=== PATIENT | female | born 1945 | race Hispanic/Latino ===

== ENCOUNTER 2017-05-07 14:57 | Emergency (ER) | payer MEDICARE, BC ==
[2017-05-07] MEDS ORDERED: cloNIDine 0.1 MG TAB ONE ×2 (16:30→17:41)
--- NOTE | 2017-05-07 16:56 | RAD ---
AP VIEW CHEST: Date: 05/07/17 INDICATION: Vomiting, headache, and hypertension. COMPARISON: Single view of chest dated 12/25/16. FINDINGS: There is mild cardiomegaly and pulmonary vascular congestion. No pleural effusion, air space consolid ation, or pneumothorax evident. Chronic osseous changes are similar. IMPRESSION: Mild cardiomegaly with mild pulmonary vascular congestion. POS: [facility]
[2017-05-07 17:03] LABS: #Eosinphils 0.1 thou/uL (0.0-0.7); #Lymphocytes 1.9 thou/uL (1.20-3.40); %Basophils 0.5 % (0.0-1.0); %Eosinophils 1.6 % (0.0-10.0); %Lymphocytes 23.1 % (21.0-51.0); %Monocytes 12.8 % (0.0-10.0); Hematocrit 45.4 % (36.0-47.0); Mean Platelet Volume 9.7 fL (7.4-10.4); Red Blood Cell (RBC) Count 5.09 mill/uL (4.20-5.40); White Blood Cell (WBC) Count 8.1 thou/uL (4.8-10.8)
[2017-05-07 17:05] LABS: ALT (SGPT) 15 U/L (8-55); AST (SGOT) 20 U/L (5-34); Alkaline Phosphatase 119 U/L (40-150); Anion Gap 12 mmol/L (10-20); BUN (Urea Nitrogen) 17 mg/dL (9.8-20.1); Bilirubin, Total 0.5 mg/dL (0.2-1.2); CK (CPK) 45 U/L (29-168); Calc. Creatinine Clearance 0 mL/min (70-130); Calcium 8.8 mg/dL (7.8-10.44); Carbon Dioxide 24 mmol/L (23-31); Chloride 107 mmol/L (98-107); Estimated GFR-MDRD 83; Globulin 3.7 g/dL (2.4-3.5); Protein, Total 7.2 g/dL (6.0-8.3)
[2017-05-07 17:08] LABS: Troponin I Less than 0.010 ng/mL (< 0.028)
[2017-05-07] MEDS ORDERED: Furosemide 40 MG/4 ML VIAL ONE (17:41)
== END 2017-05-07 20:05 | disposition home or self-care (01) ==
LOC: ERS 14:57
DX: I11.0 Hypertensive heart disease with heart failure (principal); I50.9 Heart failure, unspecified; K21.9 Gastro-esophageal reflux disease without esophagitis; F41.9 Anxiety disorder, unspecified; Z77.22 Contact with and (suspected) exposure to environmental tobacco smoke (acute) (chronic); Z79.82 Long term (current) use of aspirin
CPT/HCPCS: 36415; 71010; 80053; 82550; 82553; 83880; 84484; 85025; 93005; 96374; J1940

== ENCOUNTER 2017-07-10 11:07 | Inpatient (IN) | payer MEDICARE, BC ==
[2017-07-10 12:07] LABS: #Basophils 0.1 thou/uL (0.0-0.2); #Eosinphils 0.3 thou/uL (0.0-0.7); #Lymphocytes 1.8 thou/uL (1.20-3.40); #Neutrophils 14.9 thou/uL (1.40-6.50); %Basophils 0.4 % (0.0-1.0); %Eosinophils 1.6 % (0.0-10.0); %Lymphocytes 9.8 % (21.0-51.0); %Monocytes 5.5 % (0.0-10.0); %Neutrophils 82.8 % (42.0-75.0); Mean Corpuscular HGB CONC 31.2 g/dL (32.0-36.0); Mean Corpuscular Hemoglobin 27.8 pg (27.0-31.0); Mean Corpuscular Volume 88.9 fl (81.0-99.0); Mean Platelet Volume 10.6 fL (7.4-10.4); Platelet Count 185 thou/uL (130-400); Red Blood Cell (RBC) Count 5.03 mill/uL (4.20-5.40)
[2017-07-10] MEDS ORDERED: Acetaminophen 500 MG TAB ONE (12:08)
[2017-07-10 12:22] LABS: ALT (SGPT) 11 U/L (8-55); AST (SGOT) 16 U/L (5-34); Albumin 4.1 g/dL (3.4-4.8); Alkaline Phosphatase 118 U/L (40-150); Anion Gap 13 mmol/L (10-20); BUN (Urea Nitrogen) 18 mg/dL (9.8-20.1); Bilirubin, Total 0.9 mg/dL (0.2-1.2); Calc. Creatinine Clearance 0 mL/min (70-130); Calcium 9.5 mg/dL (7.8-10.44); Carbon Dioxide 27 mmol/L (23-31); Chloride 102 mmol/L (98-107); Estimated GFR-MDRD 71; Globulin 4.3 g/dL (2.4-3.5); Glucose 112 mg/dL (83-110); Potassium 4.2 mmol/L (3.5-5.1); Protein, Total 8.4 g/dL (6.0-8.3); Sodium 138 mmol/L (136-145)
--- NOTE | 2017-07-10 12:29 | RAD ---
2 VIEW CHEST: Date: 07/10/17 HISTORY: Cough. COMPARISON: 05/07/17. FINDINGS: There appears to be increased density seen posteriorly in the lateral view which may represent left b asilar infiltrate. There is vascular congestion with some interstitial prominence which suggests mild interstitial edema. The interstitial congestion appears stable from 05/07/17. IMPRESSION: Mild cardiomegaly and mild vascular congestion which is again noted. I cannot exclude left basilar in filtrate which may represent superimposed inflammatory process. POS: [facility]
[2017-07-10 12:53] LABS: Bilirubin Negative (Negative); Blood, Urine Negative (Negative); Clarity CLEAR (Clear); Glucose, Urine (Dipstick) Negative (Negative); Leukocyte Trace (Negative); Nitrite Negative (Negative); Protein, Urine (Dipstick) Negative (Neg-Trace); Specific Gravity, Urine 1.011 (1.002-1.036); Urobilinogen 0.2 mg/dL (0.2-1.0)
[2017-07-10 12:55] LABS: Hyaline Casts/LPF 0-3 HYALINE CAST LPF (0-3 Hyaline); Pathc Cast-AUWi Flag 0.13 (0-2.49)
[2017-07-10 13:05] LABS: RBC/HPF 0-3 HPF (0-3)
[2017-07-10 13:09] LABS: Bacteria/HPF Rare-Few HPF (None Seen)
[2017-07-10] MEDS ORDERED: Levofloxacin 500 mg/D5W 100 ml Premix Bag ONE (13:19)
--- NOTE | 2017-07-10 15:10 | HP ---
DATE OF ADMISSION: 07/20/2017 CHIEF COMPLAINT: Shortness of breath. HISTORY OF PRESENT ILLNESS: This is a 71-year-old female. She presented to the hospital wi th persistent shortness of breath that started 1 week ago associated with coughing productive sputum, green colored. She had a fever of 101 at home and she did mention that she had exposure to sick peo ple around. She had a flu shot this season and she was tested negative for influenza A and B. The p atient complains of chest pain on the left precordium, which is more pleuritic in nature. No relievi ng factors, no exacerbating factors except for deep breathing. It is not associated with nausea or v omiting, no diarrhea, no constipation. The patient had a chest x-ray in the ER, which showed signs s uggestive of left basilar infiltrate with elevated white count. The patient is not acutely hypoxic, but she does use oxygen at home in night. PAST MEDICAL HISTORY: 1. Hypertension. 2. Congestive heart failure. 3. Gastroesophageal reflux disease. 4. Restless legs syndrome. PAST SURGICAL HISTORY: 1. Left arm surgery. 2. Cholecystectomy. PSYCHIATRIC HISTORY: The patient has history of anxiety disorder. SOCIAL HISTORY: The patient denies any smoking or any alcohol use, but she has who smokes an d states she is exposed to passive smoking. FAMILY HISTORY: History of congestive heart failure, hypertension, and diabetes, also runs in the [facility]. No history of any cancer. ALLERGIES: The patient is allergic to PENICILLIN and AMOXICILLIN. HOME MEDICATIONS: Aspirin 81 mg daily, Coreg 3.125 mg p.o. b.i.d., ferrous sulfate 325 mg p.o. daily , Lasix 40 mg daily, hydralazine 25 mg p.o. t.i.d., lisinopril 5 mg p.o. daily, pantoprazole 40 mg p. o. daily, potassium 20 mEq p.o. daily, pramipexole 3 mg p.o. in the morning and pramipexole 3 mg p.o. at bedtime, sertraline 100 mg p.o. daily, torsemide 20 mg p.o. daily. REVIEW OF SYSTEMS: All 12 systems are reviewed with the patient thoroughly and found to be negative at this time. Systems reviewed HEENT, CVS, DETECTIVE NARCOTICS AND VICE, respiratory, GI, , musculoskeletal, skin, endocrin e, psychiatric and all systems are reviewed with the patient thoroughly and found to be negative exce pt the ones listed in the HPI. The following complete review of systems was negative, unless otherwi se mentioned in the HPI or below: Constitutional: Weight loss or gain, sense of well-being, ability to conduct usual activities, exerc ise tolerance. Skin/Breast: Rash, itching, changes in hair growth or loss, nail changes, breast lumps, tenderness, swelling, nipple discharge. Eyes: Vision, double vision, tearing, blind spots, pain. ENT/Mouth: Headaches (location, time of onset, duration, precipitating factors), vertigo, lightheade dness, injury. Vision, double vision, tearing, blind spots, pain, nose bleeding, colds, obstruction, discharge, dental difficulties, gingival bleeding, dentures, neck stiffness, pain, tenderness, masses in thyroid or other areas Cardiovascular: Precordial pain, substernal distress, palpitations, syncope, dyspnea on exertion, or thopnea, nocturnal paroxysmal dyspnea, edema, cyanosis, hypertension, heart murmurs, varicosities, ph lebitis, claudication. Respiratory: Pain, shortness of breath, wheezing, stridor, cough, hemoptysis, fever or night sweats Gastrointestinal: Poor appetite, dysphagia, indigestion, abdominal pain, heartburn, eructation, naus ea, vomiting, hematemesis, jaundice, constipation, or diarrhea, abnormal stools (paola-colored, tarry, bloody, greasy, foul smelling), flatulence, hemorrhoids, recent changes in bowel habits. Genitourinary: Urgency, frequency, dysuria, nocturia, hematuria, polyuria, oliguria, unusual (or nevaeh nge in) color of urine, stones, hesitancy, change in size of stream, dribbling, acute retention or in continence, libido, potency. Musculoskeletal: Pain, swelling, redness or heat of muscles or joints, limitation, of motion, muscul ar weakness, atrophy, cramps. Neurologic/Psychiatric: Convulsions, paralyses, tremor, incoordination, paraesthesias, difficulties with memory of speech, sensory or motor disturbances, or muscular coordination (ataxia, tremor), emot ional problems, anxiety, depression, previous psychiatric care, unusual perceptions, hallucinations. Allergy/Immunologic: Skin rash, anemia, bleeding tendency, polydipsia, polyuria, intolerance to heat or cold. PHYSICAL EXAMINATION: VITAL SIGNS: Blood pressure 130/88, heart rate is 18, saturation is 98% on 3 liters. GENERAL: The patient is moderately built and morbidly obese. She is alert and oriented. HEENT: Atraumatic, normocephalic. PERRLA. Extraocular movements were intact. Oral mucosa is pink and moist. CARDIOVASCULAR: S1, S2 normal. No murmurs, rubs or gallops. LUNGS: Bilateral air entry was equal. Crackles were noted in the left lower base along with inspira tory crackles. Otherwise, no diffuse wheezing was noted. ABDOMEN: Distended, nontender, no guarding, no rebound tenderness. Bowel sounds normal. MUSCULOSKELETAL: The patient has bilateral pedal edema 1+ up to the knees. Otherwise, no calf tende rness. No joint tenderness, no joint swelling. SKIN: No cyanosis, no erythema, no rash, no pallor. CENTRAL NERVOUS SYSTEM: Cranial examination II-XII intact. No focal deficit noted. PSYCHIATRIC: No signs of suicidal ideation. No signs of massimo noted. LYMPHATICS: No evidence of any generalized lymph nodes was noted. LABORATORY DATA: WBC 18.0, hemoglobin is 14.0, hematocrit is 44.8, platelets 185. Sodium 130, potas sium 4.2, chloride is 102, bicarbonate is 127, BUN is 18, creatinine 0.79. ASSESSMENT AND PLAN: 1. Acute left lower lobe pneumonia. 2. Sepsis. 3. History of congestive heart failure, likely diastolic dysfunction with no exacerbation at this ti me. 4. Hypertension well controlled. 5. Hyperlipidemia. 6. History of restless legs syndrome. PLAN: 1. Plan is to start the patient on IV antibiotics with levofloxacin 750 mg IV daily and as patient i s allergic to PENICILLIN, we will not add any cephalosporins at this time as the patient looks clinic ally stable. We will add vancomycin if the patient develop persistent fevers and worsening white cou nt. We will wait for the sputum cultures and blood cultures. We will start the patient on DuoNebs e very 4 hours and albuterol nebs every 2 hours as needed. 2. We will start the patient on Mucinex 1200 mg b.i.d. for expectoration. 3. Patient has history of congestive heart failure. No evidence of an exacerbation was noted. We w ill not start her on IV fluids and encourage the patient to take oral hydration. We will continue th e patient on home medications with lisinopril and we will hold off the Lasix at this time because of the sepsis. 4. The patient has evidence of sepsis with elevated white count of 18,000 and signs of infection wit h left lower lobe infiltrate. We will closely monitor to prevent the patient from going into septic shock. 5. The patient has history of restless legs syndrome. We will continue the patient on pramipexole; she takes 0.3 mg p.o. b.i.d. 6. Hypertension is well controlled. We will continue and restart the home medications to keep the b lood pressures at goal between less than 130/80. 7. Deep venous thrombosis prophylaxis, Lovenox 40 mg subcutaneous daily. I spent 70 minutes on this patient.
[2017-07-10] MEDS ORDERED: Ondansetron HCl/PF 4 MG/2 ML Vial IVP PRN (16:16)
[2017-07-10] MEDS ORDERED: Guaifenesin DM 100-10/5 ML UDCUP PO PRN ×2 (16:16→16:29)
[2017-07-10] MEDS ORDERED: Albuterol Sulfate 2.5 mg/3 ml Neb NEB PRN (16:16)
[2017-07-10] MEDS ORDERED: Acetaminophen 325 MG TAB PO PRN (16:16)
[2017-07-10 16:24] VITALS: BMI 43.1
[2017-07-10] MEDS ORDERED: Prevnar 13-Val Conj/PF 0.5 ML SYRINGE IM ONE (17:00)
[2017-07-10] MEDS: Famotidine/PF 20 mg/2ml Vial SLOW IVP SCH (22:00)
[2017-07-10] MEDS: guaiFENesin ER 600 MG TAB PO SCH (22:01)
[2017-07-11 04:49] LABS: #Eosinphils 0.4 thou/uL (0.0-0.7); #Monocytes 0.9 thou/uL (0.11-0.59); #Neutrophils 9.9 thou/uL (1.40-6.50); %Basophils 0.3 % (0.0-1.0); %Eosinophils 3.3 % (0.0-10.0); %Lymphocytes 15.2 % (21.0-51.0); %Monocytes 6.5 % (0.0-10.0); %Neutrophils 74.8 % (42.0-75.0); Hemoglobin 12.5 g/dL (12.0-16.0); Mean Corpuscular HGB CONC 32.2 g/dL (32.0-36.0); Mean Corpuscular Hemoglobin 28.6 pg (27.0-31.0); Mean Corpuscular Volume 88.9 fl (81.0-99.0); Mean Platelet Volume 10.5 fL (7.4-10.4); Platelet Count 151 thou/uL (130-400); RBC Distribution Width 13.9 % (11.5-14.5); Red Blood Cell (RBC) Count 4.37 mill/uL (4.20-5.40); White Blood Cell (WBC) Count 13.2 thou/uL (4.8-10.8)
[2017-07-11 04:51] LABS: Anion Gap 9 mmol/L (10-20); BUN (Urea Nitrogen) 17 mg/dL (9.8-20.1); Calc. Creatinine Clearance 121 mL/min (70-130); Carbon Dioxide 28 mmol/L (23-31); Chloride 103 mmol/L (98-107); Estimated GFR-MDRD 82; Glucose 102 mg/dL (83-110); Potassium 3.7 mmol/L (3.5-5.1); Sodium 136 mmol/L (136-145)
[2017-07-11] MEDS: Enoxaparin Sodium 40 MG/0.4 ML SYRINGE SC SCH (08:25)
[2017-07-11] MEDS: guaiFENesin ER 600 MG TAB PO SCH ×2 (08:25→20:32)
[2017-07-11] MEDS: Famotidine/PF 20 mg/2ml Vial SLOW IVP SCH ×2 (08:25→20:33)
[2017-07-11] MEDS: HYDROcodone/Acetaminophen 5/325 mg Tablet PO PRN (12:33)
--- NOTE | 2017-07-11 14:25 | PDOC.PN ---
- Subjective Encounter Start Date: 07/11/17 Encounter Start Time: 11:00 Patient is seen today, alert and oriented. She feels much better, continuos to cough on oxygen. - Objective Resuscitation Status: Resuscitation Status FULL:Full Resuscitation MAR Reviewed: Yes Vital Signs & Weight: Vital Signs (12 hours) Temp Pulse Resp BP Pulse Ox 07/11/17 11:40 98.2 F 67 20 137/66 94 L 07/11/17 10:39 64 16 94 L 07/11/17 07:35 98.2 F 64 18 143/67 H 93 L 07/11/17 07:30 98.2 F 64 18 93 L 07/11/17 07:06 61 16 96 07/11/17 05:18 97.5 F L 63 15 103/66 98 07/11/17 02:32 63 16 98 Weight Weight 236 lb I&O: 07/10/17 07/11/17 07/12/17 06:59 06:59 06:59 Intake Total 240 Balance 240 Result Diagrams: 07/11/17 04:20 07/11/17 04:20 Radiology Reviewed by me: Yes (Left Lobar infiltrate) Phys Exam - Physical Examination HEENT: PERRLA, moist MMs Neck: no nodes, no JVD Respiratory: no rales, wheezing present Cardiovascular: RRR, no significant murmur Gastrointestinal: soft, non-tender Musculoskeletal: no edema, pulses present Neurological: non-focal, normal sensation Psychiatric: normal affect, A&O x 3 Dx/Plan (1) Sepsis Code(s): A41.9 - SEPSIS, UNSPECIFIED ORGANISM Status: Acute Comment: Patient has Sepsis from pneumonia, but is Responding to IV antibitoics Levofloxacin, will clsoley monitor. (2) Left lower lobe pneumonia Code(s): J18.1 - LOBAR PNEUMONIA, UNSPECIFIED ORGANISM Status: Acute Comment : Continue on IV levaquine, Will continue with Nebs. Continue on nasal canula. (3) CHF (congestive heart failure) Code(s): I50.9 - HEART FAILURE, UNSPECIFIED Status: Acute Qualifiers: Congestive heart failure type: diastolic Congestive heart failure chronicity: chronic Qualified Code(s): I50.32 - Chronic diastolic (congestive ) heart failure Comment: Continue to Monitor, no exacerbation noted, restart on AceI, BB, Demedex, will continue to Montior (4) Hypertension Code(s): I10 - ESSENTIAL (PRIMARY) HYPERTENSION Status: Acute Qualifiers: Hypertension type: essential hypertension Qualified Code(s): I10 - Essential (primary) hypertension Comment: 1. adjustment of home medication due to hypotension 2. follow up and monitor and adjustment of medication (5) Morbid obesity Code(s): E66.01 - MORBID (SEVERE) OBESITY DUE TO EXCESS CALORIES Status: Chronic (6) Restless legs syndrome Status: Chronic Comment: Restart pramipexole she take Twice daily. - Plan cont current plan of care, continue antibiotics, PT/OT, certified social workers in health care, respiratory therapy, incentive spirometry, out of bed/ambulate, DVT proph w/ lovenox * . - Discharge Day Encounter end time: 11:35 Review of Systems - Review of Systems Constitutional: weakness, malaise Eyes: negative: Pain, Vision Change, Conjunctivae Inflammation, Eyelid Inflammation, Redness, Other ENT: negative: Ear Pain, Ear Discharge, Nose Pain, Nose Discharge, Nose Congestion, Mouth Pain, Mouth Swelling, Throat Pain, Throat Swelling, Other Respiratory: Cough, Shortness of Breath, SOB with Excertion, Wheezing Cardiovascular: negative: chest pain, palpitations, orthopnea, paroxysmal nocturnal dyspnea, edema, light headedness, other Gastrointestinal: negative: Nausea, Vomiting, Abdominal Pain, Diarrhea, Constipation, Melena, Hematochezia, Other Genitourinary: negative: Dysuria, Frequency, Incontinence, Hematuria, Retention , Other Musculoskeletal: negative: Neck Pain, Shoulder Pain, Arm Pain, Back Pain, Hand Pain, Leg Pain, Foot Pain, Other Skin: negative: Rash, Lesions, Fritz, Bruising, Other - Medications/Allergies Allergies/Adverse Reactions: Allergies Allergy/AdvReac Type Severity Reaction Status Date / Time amoxicillin [Amoxicillin] Allergy Verified 10/20/16 11:16 Penicillins Allergy Verified 10/20/16 11:16 tuberculin, purified protein Allergy Verified 10/20/16 11:16 deriva [Tuberculin,Purif.Prot.Deriv.] Medications: Current Medications Acetaminophen (Tylenol) 650 mg PO Q4H PRN PRN Reason: Headache/Fever or Pain Hydrocodone Bitart/Acetaminophen ([place] 5/325) 1 tab PO Q4H PRN PRN Reason: Moderate Pain (4-6) Last Admin: 07/11/17 12:33 Dose: 1 tab Albuterol Sulfate (Ventolin) 2.5 mg NEB Q2H PRN PRN Reason: Wheezing Albuterol/Ipratropium (Duoneb) 3 ml NEB [id number] [facility] Last Admin: 07/11/17 10:39 Dose: 3 ml Aspirin (Ecotrin) 81 mg PO DAILY [facility] Carvedilol (Coreg) 3.125 mg PO BID [facility] Dextromethorphan Polistirix (Delsym 30 Mg/5 Ml 89 Ml Bot) 30 mg PO Q4H PRN PRN Reason: Cough Enoxaparin Sodium (Lovenox) 40 mg SC 0900 [facility] Last Admin: 07/11/17 08:25 Dose: 40 mg Famotidine (Pepcid) 20 mg SLOW IVP Q12HR [facility] Last Admin: 07/11/17 08:25 Dose: 20 mg Guaifenesin (Mucinex) 1,200 mg PO Q12HR [facility] Last Admin: 07/11/17 08:25 Dose: 1,200 mg Hydralazine HCl (Apresoline) 25 mg PO TID [facility] Levofloxacin 750 mg/ Device 150 mls @ 100 mls/hr IVPB 1300 [facility] Last Admin: 07/11/17 12:31 Dose: 150 mls Lisinopril (Zestril) 5 mg PO DAILY [facility] Non-Formulary Medication (Pramipexole Di-Hcl [Mirapex Er]) 3 mg PO HS [facility] Ondansetron HCl (Zofran) 4 mg IVP Q6H PRN PRN Reason: Nausea/Vomiting Potassium Chloride (K-Dur) 20 meq PO DAILY [facility] Pramipexole Dihydrochloride (Mirapex) 3 mg PO HS [facility] Pramipexole Dihydrochloride (Mirapex) 3 mg PO QAM [facility] Sertraline HCl (Zoloft) 100 mg PO DAILY [facility] Sodium Chloride (Flush - Normal Saline) 10 ml IVF Q12HR [facility] Last Admin: 07/11/17 08:26 Dose: 10 ml Sodium Chloride (Flush - Normal Saline) 10 ml IVF PRN PRN PRN Reason: Saline Flush Torsemide (Demadex) 20 mg PO DAILY [facility]
[2017-07-11] MEDS: hydrALAZINE 25 MG TAB PO SCH ×2 (15:04→20:31)
[2017-07-11] MEDS: Pramipexole Di-HCl 1 MG TAB PO SCH (20:32)
[2017-07-11] MEDS: Carvedilol 3.125 MG TAB PO SCH (20:32)
[2017-07-11] MEDS ORDERED: Pramipexole Di-HCl 1 MG TAB PO SCH (21:00)
[2017-07-12] MEDS: HYDROcodone/Acetaminophen 5/325 mg Tablet PO PRN ×2 (00:16→22:14)
[2017-07-12] MEDS: Dextromethorphan Polistirex 30 MG/5 ML (89 ML BOTTLE) PO PRN ×3 (00:17→22:14)
[2017-07-12 04:50] LABS: #Basophils 0.1 thou/uL (0.0-0.2); #Eosinphils 0.5 thou/uL (0.0-0.7); #Lymphocytes 2.2 thou/uL (1.20-3.40); #Monocytes 0.9 thou/uL (0.11-0.59); %Basophils 0.5 % (0.0-1.0); %Lymphocytes 20.9 % (21.0-51.0); %Monocytes 8.3 % (0.0-10.0); %Neutrophils 65.3 % (42.0-75.0); Hemoglobin 11.3 g/dL (12.0-16.0); Mean Corpuscular Hemoglobin 28.3 pg (27.0-31.0); Mean Corpuscular Volume 88.5 fl (81.0-99.0); Mean Platelet Volume 10.5 fL (7.4-10.4); Platelet Count 154 thou/uL (130-400); RBC Distribution Width 13.7 % (11.5-14.5); Red Blood Cell (RBC) Count 4.01 mill/uL (4.20-5.40); White Blood Cell (WBC) Count 10.7 thou/uL (4.8-10.8)
[2017-07-12 05:09] LABS: Anion Gap 10 mmol/L (10-20); BUN (Urea Nitrogen) 20 mg/dL (9.8-20.1); Calc. Creatinine Clearance 114 mL/min (70-130); Carbon Dioxide 28 mmol/L (23-31); Chloride 106 mmol/L (98-107); Estimated GFR-MDRD 77; Glucose 101 mg/dL (83-110); Potassium 3.7 mmol/L (3.5-5.1); Sodium 140 mmol/L (136-145)
[2017-07-12] MEDS: Potassium Chloride 20 MEQ TAB PO SCH (08:42)
[2017-07-12] MEDS ORDERED: Lisinopril 5 MG TAB PO SCH (09:00)
[2017-07-12] MEDS ORDERED: Pramipexole Di-HCl 1 MG TAB PO SCH (09:00)
[2017-07-12] MEDS: Enoxaparin Sodium 40 MG/0.4 ML SYRINGE SC SCH (09:06)
[2017-07-12] MEDS: Aspirin 81 mg Enteric Coated Tablet PO SCH (09:07)
[2017-07-12] MEDS: guaiFENesin ER 600 MG TAB PO SCH ×2 (09:07→22:13)
[2017-07-12] MEDS: Carvedilol 3.125 MG TAB PO SCH ×2 (09:07→22:12)
[2017-07-12] MEDS: Famotidine/PF 20 mg/2ml Vial SLOW IVP SCH (09:07)
[2017-07-12] MEDS: hydrALAZINE 25 MG TAB PO SCH ×3 (09:08→22:12)
[2017-07-12] MEDS: Pramipexole Di-HCl 1 MG TAB PO SCH ×2 (09:09→22:13)
[2017-07-12] MEDS: Torsemide 20 MG TAB PO SCH (09:45)
--- NOTE | 2017-07-12 14:54 | PDOC.PN ---
- Subjective Encounter Start Date: 07/12/17 Encounter Start Time: 12:00 Patient is seen today, alert and oriented. She has markedly eelvated Blood pressures today, she is feeling good from pulmonary standpoint. - Objective Resuscitation Status: Resuscitation Status FULL:Full Resuscitation MAR Reviewed: Yes Vital Signs & Weight: Vital Signs (12 hours) Temp Pulse Resp BP BP Pulse Ox 07/12/17 13:34 67 16 96 07/12/17 12:17 98.6 F 62 18 181/87 H 96 07/12/17 10:21 81 16 94 L 07/12/17 09:08 62 175/80 H 07/12/17 08:56 97.7 F 64 16 175/80 H 94 L 07/12/17 07:30 97.7 F 64 16 94 L 07/12/17 06:49 66 16 97 07/12/17 04:00 97.7 F 65 16 148/78 H 92 L Weight Weight 236 lb I&O: 07/11/17 07/12/17 07/13/17 06:59 06:59 06:59 Intake Total 240 550 Balance 240 550 Result Diagrams: 07/12/17 04:08 07/12/17 04:08 Radiology Reviewed by me: Yes EKG Reviewed by me: Yes Phys Exam - Physical Examination HEENT: PERRLA, moist MMs Neck: no nodes, no JVD Respiratory: no wheezing, no rales Cardiovascular: RRR, no significant murmur Gastrointestinal: soft, non-tender Musculoskeletal: no edema, pulses present Neurological: non-focal, normal sensation Psychiatric: normal affect, A&O x 3 Dx/Plan (1) Sepsis Code(s): A41.9 - SEPSIS, UNSPECIFIED ORGANISM Status: Acute Comment: Patient has Sepsis from pneumonia, but is Responding to IV antibitoics Levofloxacin, will clsoley monitor.repeat chest xray for tomorrow. (2) Left lower lobe pneumonia Code(s): J18.1 - LOBAR PNEUMONIA, UNSPECIFIED ORGANISM Status: Acute Comment : Continue on IV levaquine, Will continue with Nebs. Continue on nasal canula. (3) CHF (congestive heart failure) Code(s): I50.9 - HEART FAILURE, UNSPECIFIED Status: Acute Qualifiers: Congestive heart failure type: diastolic Congestive heart failure chronicity: chronic Qualified Code(s): I50.32 - Chronic diastolic (congestive ) heart failure Comment: Continue to Monitor, no exacerbation noted, restart on AceI, BB, Demedex, will continue to Montior (4) Hypertension Code(s): I10 - ESSENTIAL (PRIMARY) HYPERTENSION Status: Acute Qualifiers: Hypertension type: essential hypertension Qualified Code(s): I10 - Essential (primary) hypertension Comment: 1. poorly controlled, adjustment of home medication due to hypotension , will increase lisinopril to 20mg po daily and PRN hydralazine for ssyloic >160 2. follow up and monitor and adjustment of medication (5) Morbid obesity Code(s): E66.01 - MORBID (SEVERE) OBESITY DUE TO EXCESS CALORIES Status: Chronic (6) Restless legs syndrome Status: Chronic Comment: Restart pramipexole she take Twice daily. - Plan cont current plan of care, plan discussed w/ family, continue antibiotics, PT/OT , respiratory therapy, incentive spirometry, DVT proph w/lovenox * . - Discharge Day Encounter end time: 12:35 Review of Systems - Review of Systems Eyes: negative: Pain, Vision Change, Conjunctivae Inflammation, Eyelid Inflammation, Redness, Other ENT: negative: Ear Pain, Ear Discharge, Nose Pain, Nose Discharge, Nose Congestion, Mouth Pain, Mouth Swelling, Throat Pain, Throat Swelling, Other Respiratory: negative: Cough, Dry, Shortness of Breath, Hemoptysis, SOB with Excertion, Pleuritic Pain, Sputum, Wheezing Cardiovascular: negative: chest pain, palpitations, orthopnea, paroxysmal nocturnal dyspnea, edema, light headedness, other Musculoskeletal: negative: Neck Pain, Shoulder Pain, Arm Pain, Back Pain, Hand Pain, Leg Pain, Foot Pain, Other - Medications/Allergies Allergies/Adverse Reactions: Allergies Allergy/AdvReac Type Severity Reaction Status Date / Time amoxicillin [Amoxicillin] Allergy Verified 10/20/16 11:16 Penicillins Allergy Verified 10/20/16 11:16 tuberculin, purified protein Allergy Verified 10/20/16 11:16 deriva [Tuberculin,Purif.Prot.Deriv.] Medications: Current Medications Acetaminophen (Tylenol) 650 mg PO Q4H PRN PRN Reason: Headache/Fever or Pain Hydrocodone Bitart/Acetaminophen ([place] 5/325) 1 tab PO Q4H PRN PRN Reason: Moderate Pain (4-6) Last Admin: 07/12/17 00:16 Dose: 1 tab Albuterol Sulfate (Ventolin) 2.5 mg NEB Q2H PRN PRN Reason: Wheezing Albuterol/Ipratropium (Duoneb) 3 ml NEB [id number] [facility] Last Admin: 07/12/17 13:34 Dose: 3 ml Aspirin (Ecotrin) 81 mg PO DAILY [facility] Last Admin: 07/12/17 09:07 Dose: 81 mg Carvedilol (Coreg) 3.125 mg PO BID [facility] Last Admin: 07/12/17 09:07 Dose: 3.125 mg Dextromethorphan Polistirix (Delsym 30 Mg/5 Ml 89 Ml Bot) 30 mg PO Q4H PRN PRN Reason: Cough Last Admin: 07/12/17 00:17 Dose: 30 mg Enoxaparin Sodium (Lovenox) 40 mg SC 0900 [facility] Last Admin: 07/12/17 09:06 Dose: 40 mg Famotidine (Pepcid) 20 mg PO BID [facility] Guaifenesin (Mucinex) 1,200 mg PO Q12HR [facility] Last Admin: 07/12/17 09:07 Dose: 1,200 mg Hydralazine HCl (Apresoline) 25 mg PO TID [facility] Last Admin: 07/12/17 09:08 Dose: 25 mg Hydralazine HCl (Apresoline) 10 mg SLOW IVP Q4H PRN PRN Reason: systolic >160 Levofloxacin 750 mg/ Device 150 mls @ 100 mls/hr IVPB 1300 [facility] Last Admin: 07/12/17 13:00 Dose: 150 mls Lisinopril (Zestril) 20 mg PO DAILY [facility] Ondansetron HCl (Zofran) 4 mg IVP Q6H PRN PRN Reason: Nausea/Vomiting Potassium Chloride (K-Dur) 20 meq PO QAM-WM [facility] Last Admin: 07/12/17 08:42 Dose: 20 meq Pramipexole Dihydrochloride (Mirapex) 3 mg PO BID [facility] Last Admin: 07/12/17 09:09 Dose: 3 mg Sertraline HCl (Zoloft) 100 mg PO DAILY [facility] Last Admin: 07/12/17 09:09 Dose: 100 mg Sodium Chloride (Flush - Normal Saline) 10 ml IVF Q12HR [facility] Last Admin: 07/12/17 09:10 Dose: 10 ml Sodium Chloride (Flush - Normal Saline) 10 ml IVF PRN PRN PRN Reason: Saline Flush Torsemide (Demadex) 20 mg PO DAILY [facility] Last Admin: 07/12/17 09:45 Dose: 20 mg
[2017-07-12] MEDS: hydrALAZINE 20 MG/ML VIAL SLOW IVP PRN (17:43)
[2017-07-12] MEDS: Famotidine 20 MG TAB PO SCH (22:12)
[2017-07-13 04:39] LABS: #Eosinphils 0.6 thou/uL (0.0-0.7); #Lymphocytes 2.3 thou/uL (1.20-3.40); #Monocytes 0.7 thou/uL (0.11-0.59); #Neutrophils 5.9 thou/uL (1.40-6.50); %Basophils 0.4 % (0.0-1.0); %Eosinophils 6.1 % (0.0-10.0); %Monocytes 7.5 % (0.0-10.0); Hemoglobin 11.6 g/dL (12.0-16.0); Mean Corpuscular Hemoglobin 28.2 pg (27.0-31.0); Mean Corpuscular Volume 88.2 fl (81.0-99.0); Mean Platelet Volume 10.6 fL (7.4-10.4); Platelet Count 167 thou/uL (130-400); RBC Distribution Width 13.7 % (11.5-14.5); Red Blood Cell (RBC) Count 4.11 mill/uL (4.20-5.40); White Blood Cell (WBC) Count 9.5 thou/uL (4.8-10.8)
[2017-07-13 05:05] LABS: Anion Gap 7 mmol/L (10-20); BUN (Urea Nitrogen) 20 mg/dL (9.8-20.1); Calc. Creatinine Clearance 110 mL/min (70-130); Calcium 8.9 mg/dL (7.8-10.44); Carbon Dioxide 32 mmol/L (23-31); Chloride 104 mmol/L (98-107); Estimated GFR-MDRD 73; Glucose 88 mg/dL (83-110); Potassium 3.6 mmol/L (3.5-5.1); Sodium 139 mmol/L (136-145)
[2017-07-13] MEDS: hydrALAZINE 25 MG TAB PO SCH ×3 (08:58→21:33)
[2017-07-13] MEDS: Potassium Chloride 20 MEQ TAB PO SCH (08:58)
[2017-07-13] MEDS: Pramipexole Di-HCl 1 MG TAB PO SCH ×2 (08:58→21:32)
[2017-07-13] MEDS: Lisinopril 20 MG TAB PO SCH (08:59)
[2017-07-13] MEDS: Aspirin 81 mg Enteric Coated Tablet PO SCH (08:59)
[2017-07-13] MEDS: Famotidine 20 MG TAB PO SCH ×2 (08:59→21:33)
[2017-07-13] MEDS: Enoxaparin Sodium 40 MG/0.4 ML SYRINGE SC SCH (08:59)
[2017-07-13] MEDS: guaiFENesin ER 600 MG TAB PO SCH ×2 (08:59→21:32)
[2017-07-13] MEDS: Carvedilol 3.125 MG TAB PO SCH ×2 (08:59→21:33)
[2017-07-13] MEDS: Torsemide 20 MG TAB PO SCH (09:00)
--- NOTE | 2017-07-13 09:07 | RAD ---
CHEST 1 VIEW: Date: 07/13/17 HISTORY: Dyspnea. COMPARISON: 07/10/17. FINDINGS: Cardiac silhouette is magnified by projection. Pulmonary vasculature remains engorged. Left basilar i nfiltrate is similar in appearance to the prior study. Linear atelectasis at the right base is stable . There are degenerative changes of the shoulders. IMPRESSION: Pulmonary vascular congestion and left basilar infiltrate are stable. Clinical correlation regarding other signs and symptoms of left lower lobe pneumonitis is required. POS: [facility]
[2017-07-13] MEDS: hydrALAZINE 20 MG/ML VIAL SLOW IVP PRN (10:41)
[2017-07-13] MEDS: Dextromethorphan Polistirex 30 MG/5 ML (89 ML BOTTLE) PO PRN ×2 (12:58→21:31)
--- NOTE | 2017-07-13 20:20 | PDOC.PN ---
- Subjective Encounter Start Date: 07/13/17 Encounter Start Time: 14:00 Subjective: nsg notes rev, aaron ovn, still has cough but overall feels breathing is -: a little better. has nighttime O2 at home - Objective Resuscitation Status: Resuscitation Status FULL:Full Resuscitation Vital Signs & Weight: Vital Signs (12 hours) Temp Pulse Resp BP BP Pulse Ox Pulse Ox 07/13/17 19:24 72 18 92 L 07/13/17 16:00 98.3 F 70 22 H 141/78 H 91 L 07/13/17 14:39 70 132/86 07/13/17 14:13 70 16 93 L 07/13/17 12:00 98.0 F 72 14 132/80 94 L 07/13/17 11:36 72 16 94 L 07/13/17 10:41 72 166/75 H 07/13/17 10:22 88 L 07/13/17 08:59 188/83 H 07/13/17 08:58 72 188/83 H 07/13/17 08:50 98.3 F 72 16 90 L Pulse Ox 07/13/17 19:24 07/13/17 16:00 07/13/17 14:39 07/13/17 14:13 07/13/17 12:00 07/13/17 11:36 07/13/17 10:41 07/13/17 10:22 94 L 07/13/17 08:59 07/13/17 08:58 07/13/17 08:50 Weight Weight 236 lb I&O: 07/12/17 07/13/17 07/14/17 06:59 06:59 06:59 Intake Total 477 791 2152 Balance 534 766 9678 Result Diagrams: 07/13/17 03:50 07/13/17 03:50 Phys Exam - Physical Examination Constitutional: NAD HEENT: PERRLA, moist MMs, sclera anicteric Respiratory: no wheezing, no rales, no rhonchi coarse throughout Cardiovascular: RRR, no significant murmur, no rub Gastrointestinal: soft, non-tender, no distention, positive bowel sounds Neurological: moves all 4 limbs Psychiatric: normal affect, A&O x 3 Dx/Plan - Plan * sepsis 2/2 LL PNA, resolved * LLL PNA * continue abx * transition from IV to PO * continue supportive O2, wean as tolerated CHF * improved respiratory status overall, continue home regimen HTN * improved ctrl obesity * stable diet: cardiac activity: as edmar Review of Systems - Medications/Allergies Allergies/Adverse Reactions: Allergies Allergy/AdvReac Type Severity Reaction Status Date / Time amoxicillin [Amoxicillin] Allergy Verified 10/20/16 11:16 Penicillins Allergy Verified 10/20/16 11:16 tuberculin, purified protein Allergy Verified 10/20/16 11:16 deriva [Tuberculin,Purif.Prot.Deriv.] Medications: Current Medications Acetaminophen (Tylenol) 650 mg PO Q4H PRN PRN Reason: Headache/Fever or Pain Hydrocodone Bitart/Acetaminophen ([place] 5/325) 1 tab PO Q4H PRN PRN Reason: Moderate Pain (4-6) Last Admin: 07/12/17 22:14 Dose: 1 tab Albuterol Sulfate (Ventolin) 2.5 mg NEB Q2H PRN PRN Reason: Wheezing Albuterol/Ipratropium (Duoneb) 3 ml NEB [id number] [facility] Last Admin: 07/13/17 19:24 Dose: 3 ml Aspirin (Ecotrin) 81 mg PO DAILY [facility] Last Admin: 07/13/17 08:59 Dose: 81 mg Carvedilol (Coreg) 3.125 mg PO BID [facility] Last Admin: 07/13/17 08:59 Dose: 3.125 mg Dextromethorphan Polistirix (Delsym 30 Mg/5 Ml 89 Ml Bot) 30 mg PO Q4H PRN PRN Reason: Cough Last Admin: 07/13/17 12:58 Dose: 30 mg Enoxaparin Sodium (Lovenox) 40 mg SC 0900 [facility] Last Admin: 07/13/17 08:59 Dose: 40 mg Famotidine (Pepcid) 20 mg PO BID [facility] Last Admin: 07/13/17 08:59 Dose: 20 mg Guaifenesin (Mucinex) 1,200 mg PO Q12HR [facility] Last Admin: 07/13/17 08:59 Dose: 1,200 mg Hydralazine HCl (Apresoline) 25 mg PO TID [facility] Last Admin: 07/13/17 14:39 Dose: 25 mg Hydralazine HCl (Apresoline) 10 mg SLOW IVP Q4H PRN PRN Reason: systolic >160 Last Admin: 07/13/17 10:41 Dose: 10 mg Levofloxacin 750 mg/ Device 150 mls @ 100 mls/hr IVPB 1300 [facility] Last Admin: 07/13/17 12:58 Dose: 150 mls Lisinopril (Zestril) 20 mg PO DAILY [facility] Last Admin: 07/13/17 08:59 Dose: 20 mg Ondansetron HCl (Zofran) 4 mg IVP Q6H PRN PRN Reason: Nausea/Vomiting Potassium Chloride (K-Dur) 20 meq PO QAM-WM [facility] Last Admin: 07/13/17 08:58 Dose: 20 meq Pramipexole Dihydrochloride (Mirapex) 3 mg PO BID [facility] Last Admin: 07/13/17 08:58 Dose: 3 mg Sertraline HCl (Zoloft) 100 mg PO DAILY [facility] Last Admin: 07/13/17 08:59 Dose: 100 mg Sodium Chloride (Flush - Normal Saline) 10 ml IVF Q12HR [facility] Last Admin: 07/13/17 09:02 Dose: 10 ml Sodium Chloride (Flush - Normal Saline) 10 ml IVF PRN PRN PRN Reason: Saline Flush Torsemide (Demadex) 20 mg PO DAILY [facility] Last Admin: 07/13/17 09:00 Dose: 20 mg
[2017-07-14] MEDS: Pramipexole Di-HCl 1 MG TAB PO SCH ×2 (08:32→20:47)
[2017-07-14] MEDS: guaiFENesin ER 600 MG TAB PO SCH ×2 (08:33→20:48)
[2017-07-14] MEDS: Lisinopril 20 MG TAB PO SCH (08:33)
[2017-07-14] MEDS: Famotidine 20 MG TAB PO SCH ×2 (08:34→20:48)
[2017-07-14] MEDS: Carvedilol 3.125 MG TAB PO SCH ×2 (08:34→20:48)
[2017-07-14] MEDS: Aspirin 81 mg Enteric Coated Tablet PO SCH (08:34)
[2017-07-14] MEDS: hydrALAZINE 25 MG TAB PO SCH ×3 (08:35→20:47)
[2017-07-14] MEDS: Torsemide 20 MG TAB PO SCH (08:35)
[2017-07-14] MEDS: Potassium Chloride 20 MEQ TAB PO SCH (08:36)
[2017-07-14] MEDS: Enoxaparin Sodium 40 MG/0.4 ML SYRINGE SC SCH (08:37)
[2017-07-14] MEDS: Dextromethorphan Polistirex 30 MG/5 ML (89 ML BOTTLE) PO PRN (20:47)
--- NOTE | 2017-07-14 23:44 | PDOC.PN ---
- Subjective Encounter Start Date: 07/14/17 Encounter Start Time: 16:00 Subjective: nsg notes rev, aaron ovn, pt feels her newly increased [id number] is -: easier to manage today - Objective Resuscitation Status: Resuscitation Status FULL:Full Resuscitation Vital Signs & Weight: Vital Signs (12 hours) Temp Pulse Resp BP BP Pulse Ox 07/14/17 22:03 72 12 07/14/17 20:58 98.4 F 72 18 158/64 H 92 L 07/14/17 20:47 78 156/64 H 07/14/17 20:00 98.4 F 72 18 92 L 07/14/17 19:10 78 16 07/14/17 16:25 97.8 F 73 14 157/75 H 93 L 07/14/17 14:40 63 152/69 H 07/14/17 13:32 65 16 95 Weight Weight 236 lb I&O: 07/13/17 07/14/17 07/15/17 06:59 06:59 06:59 Intake Total 390 1979 1020 Balance 390 19790 Result Diagrams: 07/13/17 03:50 07/13/17 03:50 Dx/Plan - Plan * sepsis 2/2 LL PNA, resolved * LLL PNA * continue abx on oral basis * continue supportive O2, wean as tolerated, check ambulatory pulse ox * O2 approval sent, patient will continue to wean at home CHF * improved respiratory status overall, continue home regimen HTN * improved ctrl obesity * stable diet: cardiac activity: as edmar discussed d/c planning with the patient. Review of Systems - Medications/Allergies Allergies/Adverse Reactions: Allergies Allergy/AdvReac Type Severity Reaction Status Date / Time amoxicillin [Amoxicillin] Allergy Verified 10/20/16 11:16 Penicillins Allergy Verified 10/20/16 11:16 tuberculin, purified protein Allergy Verified 10/20/16 11:16 deriva [Tuberculin,Purif.Prot.Deriv.]
[2017-07-15] MEDS: Dextromethorphan Polistirex 30 MG/5 ML (89 ML BOTTLE) PO PRN (05:33)
[2017-07-15] MEDS: Enoxaparin Sodium 40 MG/0.4 ML SYRINGE SC SCH (09:45)
[2017-07-15] MEDS: Potassium Chloride 20 MEQ TAB PO SCH (09:45)
[2017-07-15] MEDS: Carvedilol 3.125 MG TAB PO SCH (09:45)
[2017-07-15] MEDS: Aspirin 81 mg Enteric Coated Tablet PO SCH (09:45)
[2017-07-15] MEDS: hydrALAZINE 25 MG TAB PO SCH (09:46)
[2017-07-15] MEDS: Famotidine 20 MG TAB PO SCH (09:46)
[2017-07-15] MEDS: guaiFENesin ER 600 MG TAB PO SCH (09:46)
[2017-07-15] MEDS: Lisinopril 20 MG TAB PO SCH (09:47)
[2017-07-15] MEDS: Pramipexole Di-HCl 1 MG TAB PO SCH (09:47)
[2017-07-15] MEDS: Torsemide 20 MG TAB PO SCH (09:47)
[2017-07-15 12:47] VITALS: BP 149/67; TEMP 98.2
--- NOTE | 2017-07-16 15:19 | DIS ---
DATE OF ADMISSION: 07/10/2017 DATE OF DISCHARGE: 07/15/2017 DISCHARGE DIAGNOSES: 1. Left lower lobe pneumonia. 2. Sepsis secondary to left lower lobe pneumonia, resolved. 3. Congestive heart failure. BRIEF SUMMARY OF HOSPITAL COURSE: A 72-year-old female who was initially presented with a chief complaint of shortness of breath. Please see the original history and physical for full details surrounding admission. The patient was found to have a left lower lobe pneumonia and initially met criteria for sepsis. The patient was started on empiric antibiotics, which at the time of discharge has been deescalated to an oral regimen. The patient was initially requiring supplemental O2 and at the time of discharge, that has been weaned down and has passed an ambulatory pulse oximetry. At the time of discharge, the patient's sepsis is resolved. Patient has a known history of congestive heart failure, hypertension, and obesity. All of these have otherwise remained stable during this hospitalization. MEDICATION RECONCILIATION: Please see the EMR for full detail. The patient is to continue her home regimen with the addition of Levaquin 500 mg p.o. daily to complete a 10 day course. CONDITION AT DISCHARGE: The patient is hemodynamically stable. The patient was seen and examined by myself. AT discharge, she is back to baseline diet. DISCHARGE INSTRUCTIONS: The patient has been asked to follow up carefully with her outpatient team including her primary care provider. The patient is able to complete teach back. Thank you for asking me to care of this patient. If you have any questions or concerns, contact me at [facility]. Greater than 30 minutes spent coordinating discharge for the patient. TOLU
--- NOTE | 2017-08-08 17:33 | EKG ---
Test Reason : Blood Pressure : / mmHG Vent. Rate : 090 BPM Atrial Rate : 090 BPM P-R Int : 162 ms QRS Dur : 132 ms QT Int : 382 ms P-R-T Axes : 047 050 -31 degrees QTc Int : 467 ms Normal sinus rhythm Right bundle branch block T wave abnormality, consider inferior ischemia Abnormal ECG Confirmed by BINH MCCULLOUGH, LEI ([id number]), story editor RYLAN BUSTOS ([id number]) on 08/08/2017 5:33:06 PM Referred By: Confirmed By:LEI PURCELL MD
== END 2017-07-15 14:00 | disposition home or self-care (01) | DRG 871 ==
LOC: ERS 11:07 → SJJU 13:51
PROVIDERS: ADMIT Family Medicine; ATTEND Family Medicine
DX: A41.9 Sepsis, unspecified organism (principal); J18.9 Pneumonia, unspecified organism; I11.0 Hypertensive heart disease with heart failure; I50.32 Chronic diastolic (congestive) heart failure; Z68.41 Body mass index [BMI] 40.0-44.9, adult; E78.5 Hyperlipidemia, unspecified; E66.01 Morbid (severe) obesity due to excess calories; G25.81 Restless legs syndrome; K21.9 Gastro-esophageal reflux disease without esophagitis; F41.9 Anxiety disorder, unspecified; Z88.0 Allergy status to penicillin; Z79.82 Long term (current) use of aspirin; Z79.899 Other long term (current) drug therapy
CPT/HCPCS: 36415; 71045; 71046; 80048; 80053; 81003; 81015; 83605; 85025; 87040; 87070; 87086; 87205; 87804; 93005; 94640; 94760; 96365; 96367; A4216; G8978-GP-CI; G8979-GP-CI; G8980-GP-CI; G8987-GO-CI; G8988-GO-CI; G8989-GO-CI; J0360; J1650; J1956; J3370; J7620; S0028

== ENCOUNTER 2018-06-06 04:56 | Inpatient (IN) | payer MEDICARE, BC ==
[2018-06-06 05:24] LABS: #Basophils 0.1 thou/uL (0.0-0.2); #Eosinphils 0.5 thou/uL (0.0-0.7); #Lymphocytes 2.8 thou/uL (1.20-3.40); #Monocytes 1.1 thou/uL (0.11-0.59); #Neutrophils 11.8 thou/uL (1.40-6.50); %Basophils 0.7 % (0.0-1.0); %Eosinophils 2.9 % (0.0-10.0); %Lymphocytes 17.2 % (21.0-51.0); %Monocytes 6.7 % (0.0-10.0); %Neutrophils 72.6 % (42.0-75.0); Hemoglobin 11.9 g/dL (12.0-16.0); Mean Corpuscular HGB CONC 31.8 g/dL (32.0-36.0); Mean Corpuscular Hemoglobin 28.2 pg (27.0-31.0); Mean Corpuscular Volume 88.5 fL (78.0-98.0); Mean Platelet Volume 9.4 fL (7.4-10.4); Platelet Count 205 thou/uL (130-400); RBC Distribution Width 12.8 % (11.5-14.5); Red Blood Cell (RBC) Count 4.24 mill/uL (4.20-5.40); White Blood Cell (WBC) Count 16.3 thou/uL (4.8-10.8)
[2018-06-06 05:43] LABS: Actual Bicarbonate (HCO3a) 31.9 mEq/L (22-28); Analyzer IN Cardio ER; Base Excess (BEa) 5.8 mEq/L (-2.0 to +3.0); CO2 Tension 52.6 mmHg (35.0-45.0); Calcium, Ionized 1.14 mmol/L (1.12-1.30); Carboxyhemoglobin (COHb) 0.3 gm% (0.0-3.0); Hemoglobin (Hb) 12.3 g/dL (12.0-16.0); O2 Tension (PaO2) 170.3 mmHg (> 70.0); Potassium - ABG Lab 3.71 mmol/L (3.70-5.30)
[2018-06-06 05:45] LABS: Puncture Site LBA
[2018-06-06 05:45] LABS: ALT (SGPT) 18 U/L (8-55); AST (SGOT) 18 U/L (5-34); Albumin 3.2 g/dL (3.4-4.8); Alkaline Phosphatase 138 U/L (40-150); Anion Gap 12 mmol/L (10-20); BUN (Urea Nitrogen) 17 mg/dL (9.8-20.1); Bilirubin, Total 0.5 mg/dL (0.2-1.2); Calc. Creatinine Clearance 0 mL/min (70-130); Calcium 9.1 mg/dL (7.8-10.44); Carbon Dioxide 31 mmol/L (23-31); Chloride 99 mmol/L (98-107); Estimated GFR-MDRD 64; Globulin 4.8 g/dL (2.4-3.5); Glucose 106 mg/dL (83-110); Potassium 3.9 mmol/L (3.5-5.1); Sodium 138 mmol/L (136-145)
[2018-06-06] MEDS ORDERED: Azithromycin 500 MG VIAL ONE (05:50)
[2018-06-06] MEDS ORDERED: cefTRIAXone\\ROCEPHIN 1 GM VIAL ONE (05:50)
[2018-06-06] MEDS ORDERED: Nitroglycerin 0.4 MG TAB (25 Tab Bottle) ONE (05:50)
[2018-06-06] MEDS ORDERED: Nitroglycerin 2% Ointment 1 INCH/1 GM Packet ONE (05:50)
[2018-06-06] MEDS ORDERED: Dexamethasone 10 MG/ML VIAL ONE (06:03)
[2018-06-06] MEDS ORDERED: Furosemide 40 MG/4 ML VIAL ONE ×2 (06:03→15:08)
[2018-06-06] MEDS ORDERED: Senokot S 8.6-50 MG TAB PO PRN (08:44)
[2018-06-06 08:46] LABS: Troponin I 0.013 ng/mL (< 0.028)
--- NOTE | 2018-06-06 08:54 | PDOC.EVN ---
Event Note - Event Note Event Note: H&P dictated #[id number]
--- NOTE | 2018-06-06 09:34 | RAD ---
CHEST 1 VIEW: Date: 06/06/18 HISTORY: Chest pain, edema. COMPARISON: Radiograph dated 07/13/17. FINDINGS: Heart size is enlarged. Mild edema. No pneumothorax. Confluent alveolar edema in the bases. Moderate degenerative disease both shoulders. IMPRESSION: Cardiomegaly and mild pulmonary edema. POS: [facility]
[2018-06-06] MEDS ORDERED: Aspirin 81 mg Enteric Coated Tablet PO SCH (11:00)
[2018-06-06] MEDS ORDERED: Enoxaparin Sodium 40 MG/0.4 ML SYRINGE ONE (11:28)
[2018-06-06] MEDS ORDERED: Levofloxacin 500 mg/D5W 100 ml Premix Bag ONE (11:28)
--- NOTE | 2018-06-06 11:42 | HP ---
CHIEF COMPLAINT: Shortness of breath, cough, fatigue, and weakness. HISTORY OF PRESENT ILLNESS: This is a 72-year-old female, presenting to the emergency room complaining of shortness of breath and cough, was seen in the ER, given Lasix, dose of antibiotics. At the time of evaluation by Internal Medicine, the patient stated that she was feeling better; however, still noted that she felt a little bit short of breath and more swollen than normal. The patient otherwise denies any other complaints or issues at this point in time. Does admit to some mild dyspnea on exertion in the past. The patient was seen and examined in the ER. No family at bedside. All questions answered. ALLERGIES: TO AMOXICILLIN AND PENICILLIN. REVIEW OF SYSTEMS: All systems were reviewed. Pertinent positives in HPI, otherwise negative. PAST MEDICAL HISTORY: Past history of hypertension, GERD, congestive heart failure, and restless legs syndrome. HOME MEDICATIONS: See MAR. FAMILY HISTORY: Noncontributory. SOCIAL HISTORY: Denies any drinking or smoking. PHYSICAL EXAMINATION: VITAL SIGNS: Blood pressure 149/88, respiratory rate of 18, temperature 98.9, O2 saturation 99% on 2 L nasal cannula. GENERAL: The patient lying comfortably in bed with no issues. HEENT: Pupils are equal, round, and reactive to light and accommodation. Normocephalic, atraumatic. Oral cavity moist and pink. NECK: Supple, mobile and nontender. Thyroid appreciated. CARDIOVASCULAR: Regular rate and rhythm. S1, S2. No murmurs or gallops appreciated. PULMONARY: Coarse breath sounds. Mild inspiratory crackles, bilateral lower lobes. No respiratory distress. No increase in AP diameter. ABDOMEN: Positive bowel sounds. Soft, nontender. No rebound or guarding noted. EXTREMITIES: 2+ peripheral pulses bilaterally. No cyanosis, clubbing, or edema noted. LABORATORY DATA: CBC shows a WBC count of 16.3, otherwise normal. ABG shows pH of 7.4, pCO2 52, PO2 of 170. BMP normal. ASSESSMENT AND PLAN: 1. Pneumonia. 2. Congestive heart failure. 3. Hypertension. 4. Hyperlipidemia. 5. Obesity. PLAN: 1. At this point, I will admit the patient to Telemetry. Trend troponin. Start the patient on Levaquin, give Lasix, echo, Cardiology consult, aspirin, and atorvastatin. 2. IV diuretics. 3. The patient wishes to remain a full code. 4. We will see how the patient progresses over the next 24 to 48 hours and plan for discharge in about 1 or 2 days. If the patient is feeling well, transition to p.o. antibiotics and p.o. diuretics. The patient will need to follow up with outpatient PCP and Cardiology within 1 to 2 weeks post discharge. Case and plan discussed with the patient at length. She understood and agreed to this plan. Job ID: [id number]
[2018-06-06 11:50] LABS: Troponin I 0.011 ng/mL (< 0.028)
[2018-06-06] MEDS ORDERED: Pramipexole Di-HCl 1 MG TAB PO SCH (15:15)
[2018-06-06] MEDS ORDERED: Aspirin 81 mg Enteric Coated Tablet ONE (18:10)
[2018-06-06 18:25] VITALS: BMI 43.7
[2018-06-06] MEDS: Furosemide 40 MG/4 ML VIAL SLOW IVP SCH (18:26)
[2018-06-06] MEDS: Enoxaparin Sodium 40 MG/0.4 ML SYRINGE SC SCH (18:26)
[2018-06-06] MEDS: Atorvastatin Calcium 40 MG TAB PO SCH (21:41)
--- NOTE | 2018-06-07 04:26 | CON ---
DATE OF CONSULTATION: 06/06/2018 TYPE OF CONSULTATION: Cardiology. INDICATION FOR CONSULTATION: This is a 72-year-old female with diastolic heart failure and COPD exacerbation. HISTORY OF PRESENT ILLNESS: This very pleasant 72-year-old female has a history of diastolic heart failure as well as COPD and has had episodes of respiratory distress in the past. She has also had history of pneumonia. She woke up today and knows that she was not necessarily short of breath, but felt like she could not take a deep breath and was somewhat concerned that she may be developing pneumonia. She had some chills recently, but these had resolved and she just thought it was perhaps just a cold, but she wanted to come to the hospital before she became worse again since she has been intubated in the past. She did undergo a cardiac catheterization in 2013, which showed a normal left ventricular systolic function with mild coronary artery disease with no lesion more than 10%. At this time, she has remained stable. Otherwise, from a cardiac standpoint, she has not followed up with Cardiology since her cardiac catheterization in 2013 unless she was in the hospital and then was re-evaluated for her diastolic heart failure. Her last echocardiogram showed a normal ejection fraction with dilated right ventricle and diastolic dysfunction. PAST MEDICAL HISTORY: Significant for cholecystectomy, ear surgery, arm surgery, respiratory failure, and diastolic dysfunction. SOCIAL HISTORY: She is . Has children who are alive and well. She has no alcohol or tobacco abuse. FAMILY HISTORY: Unremarkable, noncontributory. SOCIAL HISTORY: There is no history of alcohol or tobacco abuse either. ALLERGIES: ALLERGIC TO PENICILLIN AND TUBERCULIN. MEDICATIONS: Prior to admission included; 1. Lisinopril 10 mg a day. 2. Coreg 12.5 mg b.i.d. 3. Aspirin 81 mg a day. 4. Furosemide 40 mg b.i.d. 5. Potassium 20 mEq a day. 6. Sertraline. 7. Pramipexole. REVIEW OF SYSTEMS: A 12-point review of systems is unremarkable except what is noted in the history of present illness. PHYSICAL EXAMINATION: GENERAL: Reveals an elderly female, who is in no acute distress at this time. She is alert. She is oriented, very pleasant. VITAL SIGNS: Her blood pressure is 147/67. She is afebrile. Heart rate is 55, shows sinus rhythm with a bundle branch block. Respiratory rate is 18, O2 saturation is 99%. HEENT: Shows head to be normocephalic and atraumatic. Oral mucosa is pink and moist. NECK: Carotid pulses are present. There were no bruits. There is no JVD. The thyroid is not enlarged. CHEST: Actually clear to auscultation. I did not hear any rales, rhonchi, or wheezing. CARDIOVASCULAR: Reveals a regular rate and rhythm. Heart sounds are somewhat distant, but I did not hear any significant murmurs, heaves, thrills, bruits, or rubs. ABDOMEN: Exam shows obesity with positive bowel sounds. No organomegaly or masses are noted. Femoral pulses are present. EXTREMITIES: Show no clubbing, cyanosis, or edema. Pedal pulses are somewhat difficult to palpate, but I believe are present. NEUROLOGIC: The patient appears to be intact. LABORATORY DATA: Shows a WBC of 16.3 with a hemoglobin of 11.9, platelet count of 205. Her BNP is 354. Cardiac enzymes are negative. Her potassium is 3.9, sodium of 138, creatinine of 0.87, and blood sugar was 106. EKG shows a normal sinus rhythm with a right bundle-branch block. IMPRESSION: 1. Chronic obstructive pulmonary disease exacerbation. She has been treated at this time with antibiotics. She was given also steroids in the emergency room as well as IV diuretics and nitroglycerin. At this time, we will continue her medications for her chronic obstructive pulmonary disease exacerbation and possible pneumonia. Her chest x-ray did not show any acute findings. 2. Congestive heart failure which is diastolic in nature, would agree with continuing the diuretics. Also, she had been on beta-blockers in the past. Would reinstate those as soon as she is not significantly short of breath. She seems to have tolerated these quite well in the past. 3. Mild coronary artery disease, does not appear that she has had any progression of her disease. Her enzymes were negative. We will be more than happy to continue to follow the patient with you through her hospital course, but hopefully, she will be able to be discharged in the next few days. Job ID: [id number]
[2018-06-07] MEDS: Furosemide 40 MG/4 ML VIAL SLOW IVP SCH ×2 (05:35→13:52)
[2018-06-07 05:54] LABS: Anion Gap 13 mmol/L (10-20); BUN (Urea Nitrogen) 27 mg/dL (9.8-20.1); Calc. Creatinine Clearance 106 mL/min (70-130); Calcium 9.3 mg/dL (7.8-10.44); Carbon Dioxide 28 mmol/L (23-31); Chloride 101 mmol/L (98-107); Estimated GFR-MDRD 70; Glucose 171 mg/dL (83-110); Sodium 138 mmol/L (136-145)
[2018-06-07 06:59] LABS: Hemoglobin 11.7 g/dL (12.0-16.0); Mean Corpuscular HGB CONC 32.2 g/dL (32.0-36.0); Mean Corpuscular Hemoglobin 28.5 pg (27.0-31.0); Mean Corpuscular Volume 88.5 fL (78.0-98.0); Mean Platelet Volume 10.2 fL (7.4-10.4); Platelet Count 192 thou/uL (130-400); RBC Distribution Width 12.5 % (11.5-14.5); Red Blood Cell (RBC) Count 4.12 mill/uL (4.20-5.40); White Blood Cell (WBC) Count 20.3 thou/uL (4.8-10.8)
[2018-06-07 08:05] LABS: Band 24 % (5-11); Lymphocytes 2 % (21-51); MDiff Complete? YES; Monocytes 4 % (0-10); Neutrophil 70 % (42-75); Platelet Morphology Comment Appears Adequate; Polychromasia SLIGHT = 2-3 cells (100X) (0-2/hpf)
--- NOTE | 2018-06-07 08:31 | PDOC.PN ---
- Subjective Encounter Start Date: 06/07/18 Encounter Start Time: 08:29 Subjective: less sob, no pain or fever - Objective Resuscitation Status - Order Detail: 06/06/18 08:44 Resuscitation Status Routine Resuscitation Status: FULL: Full Resuscitation Discussed with: patient SARAVANAN Reviewed: Yes Vital Signs & Weight: Vital Signs (12 hours) Temp Pulse Resp BP Pulse Ox 06/07/18 04:52 145/64 H 06/07/18 04:00 97.4 F L 57 L 18 96 06/06/18 20:45 96.4 F L 57 L 20 177/75 H 95 Weight Weight 239 lb 3 oz I&O: 06/06/18 06/07/18 06/08/18 06:59 06:59 06:59 Intake Total 240 Output Total 425 Balance -185 Result Diagrams: 06/07/18 05:02 06/07/18 05:02 Phys Exam - Physical Examination Neck: no JVD scant basilar rales, no wheezes Cardiovascular: RRR, no significant murmur Gastrointestinal: soft, non-tender, positive bowel sounds Musculoskeletal: no edema Dx/Plan (1) COPD exacerbation Code(s): J44.1 - CHRONIC OBSTRUCTIVE PULMONARY DISEASE W (ACUTE) EXACERBATION Status: Acute (2) Hypertension Code(s): I10 - ESSENTIAL (PRIMARY) HYPERTENSION Status: Acute Qualifiers: Hypertension type: essential hypertension Comment: 1. poorly controlled, adjustment of home medication due to hypotension , will increase lisinopril to 20mg po daily and PRN hydralazine for ssyloic >160 2. follow up and monitor and adjustment of medication (3) Restless legs syndrome Status: Chronic Comment: Restart pramipexole she take Twice daily. - Plan reinstate coreg, lisinopril, po hydralazine- monitor BP -: etiology of leukocytosis still unclear. blood C&S neg * .
[2018-06-07] MEDS ORDERED: Lisinopril 5 MG TAB PO SCH (09:00)
[2018-06-07] MEDS ORDERED: Lisinopril 2.5 MG TAB PO SCH (09:00)
[2018-06-07] MEDS: hydrALAZINE 25 MG TAB PO SCH ×3 (09:15→21:44)
[2018-06-07] MEDS: Carvedilol 3.125 MG TAB PO SCH ×2 (09:16→21:44)
[2018-06-07] MEDS: Enoxaparin Sodium 40 MG/0.4 ML SYRINGE SC SCH (09:16)
[2018-06-07] MEDS ORDERED: Lisinopril 10 MG TAB PO SCH (21:00)
[2018-06-07] MEDS ORDERED: PRAMIPEXOLE DI HCL 3 MG PO SCH (21:00)
[2018-06-07] MEDS: Atorvastatin Calcium 40 MG TAB PO SCH (21:43)
[2018-06-07] MEDS: Famotidine 20 MG TAB PO SCH (21:43)
[2018-06-07] MEDS: Pramipexole Di-HCl 1 MG TAB PO SCH (21:44)
[2018-06-08] MEDS: Furosemide 40 MG/4 ML VIAL SLOW IVP SCH ×2 (06:03→13:07)
[2018-06-08] MEDS: Enoxaparin Sodium 40 MG/0.4 ML SYRINGE SC SCH (08:27)
[2018-06-08] MEDS: Famotidine 20 MG TAB PO SCH ×2 (08:27→20:48)
[2018-06-08] MEDS: hydrALAZINE 25 MG TAB PO SCH ×3 (08:27→20:48)
[2018-06-08] MEDS: Aspirin 81 mg Enteric Coated Tablet PO SCH (08:27)
[2018-06-08] MEDS: Carvedilol 3.125 MG TAB PO SCH ×2 (08:27→20:48)
[2018-06-08] MEDS: Potassium Chloride 20 MEQ TAB PO SCH (08:28)
[2018-06-08] MEDS: Pramipexole Di-HCl 1 MG TAB PO SCH ×2 (08:28→20:49)
[2018-06-08] MEDS ORDERED: Lisinopril 10 MG TAB PO SCH (09:00)
[2018-06-08] MEDS ORDERED: Aspirin Chewable 81 MG TAB PO SCH (09:00)
--- NOTE | 2018-06-08 09:50 | DIS ---
DATE OF ADMISSION: 06/06/2018 DATE OF DISCHARGE: 06/08/2018 TRANSFER OF CARE. PRIMARY CARE PHYSICIAN: Dr. Selwyn Stein. DISCHARGE DISPOSITION: Home. FINAL DIAGNOSES: Acute on chronic diastolic heart failure, chronic obstructive pulmonary disease without acute exacerbation, hypertension, restless legs syndrome, oral moniliasis. DISCHARGE MEDICATIONS: 1. Lasix 40 mg p.o. b.i.d. 2. Nystatin oral suspension 5 mL swish and swallow q.i.d. 3. Coreg 3.125 mg twice a day. 4. Zoloft 100 mg a day. 5. Pepcid 20 mg twice a day. 6. Mirapex 2 mg a day. 7. Aspirin 81 mg a day. 8. K-Dur 20 a day. 9. Zestril 10 mg a day. 10. Pramipexole mg at bedtime. ALLERGIES: PENICILLINS, PPD, TUBERCULIN TEST. CODE STATUS: Full. DIET: Heart healthy. As mentioned before, discharged home. PENDING AT TIME OF DISCHARGE: Nothing. HOSPITAL COURSE: Patient referred [facility] through [facility] Emergency Department with shortness of breath and cough. She was found to have some decompensated diastolic heart failure, treated with IV diuretics. She improved. Her chest is now clear. Her chest x-ray initially with mild pulmonary vascular congestion. LABORATORIES: Comp metabolic profile was normal. Cardiac enzymes were normal. CBC showed a high white count of 16.3, hemoglobin 11.9. Patient had blood cultures done which were normal. Her influenza test was negative. The patient has been afebrile during her stay. Her white cell count remained high, thought to be from the Decadron given for her COPD in the emergency room. As her chest remained clear , she is not being continued on antibiotics or steroids for COPD. CONSULTATIONS: Dori Walker MD, Cardiology. PROCEDURES: None. At the time of discharge, she complained of a dry mouth. On examination, it was consistent with oral moniliasis. She is being discharged on nystatin oral solution swish and swallow for 7 days. She needs followup with her primary care doctor in one week. Job ID: [id number] MTDD
[2018-06-08] MEDS ORDERED: hydrALAZINE 20 MG/ML VIAL SLOW IVP PRN (11:59)
--- NOTE | 2018-06-08 15:00 | PDOC.PN ---
- Subjective Encounter Start Date: 06/08/18 Encounter Start Time: 14:58 Subjective: no sob or pain - Objective Resuscitation Status - Order Detail: 06/06/18 08:44 Resuscitation Status Routine Resuscitation Status: FULL: Full Resuscitation Discussed with: patient SARAVANAN Reviewed: Yes Vital Signs & Weight: Vital Signs (12 hours) Temp Pulse Resp BP BP Pulse Ox 06/08/18 13:07 63 203/91 H 06/08/18 11:41 97.6 F 63 20 203/91 H 96 06/08/18 08:27 60 166/68 H 06/08/18 08:21 97.7 F 60 19 166/68 H 97 06/08/18 08:15 97 06/08/18 06:41 60 16 06/08/18 04:00 97.5 F L 60 20 144/65 H 97 Weight Admit Weight 239 lb 3 oz Weight 236 lb 8 oz I&O: 06/07/18 06/08/18 06/09/18 06:59 06:59 06:59 Intake Total 240 1310 Output Total 425 2200 Balance -185 -890 Result Diagrams: 06/07/18 05:02 06/07/18 05:02 Phys Exam - Physical Examination Neck: no JVD Respiratory: clear to auscultation bilateral Cardiovascular: RRR, no significant murmur Gastrointestinal: soft, positive bowel sounds Musculoskeletal: no edema Dx/Plan (1) COPD exacerbation Code(s): J44.1 - CHRONIC OBSTRUCTIVE PULMONARY DISEASE W (ACUTE) EXACERBATION Status: Acute (2) Hypertension Code(s): I10 - ESSENTIAL (PRIMARY) HYPERTENSION Status: Acute Qualifiers: Hypertension type: essential hypertension Comment: 1. poorly controlled, adjustment of home medication due to hypotension , will increase lisinopril to 20mg po daily and PRN hydralazine for ssyloic >160 2. follow up and monitor and adjustment of medication (3) Restless legs syndrome Status: Chronic Comment: Restart pramipexole she take Twice daily. (4) Thrush, oral Code(s): B37.0 - CANDIDAL STOMATITIS Status: Acute - Plan BP up, increase lisinopril to bid -: nystatin SSw qid -: cont coreg,lasix, hydralazine * .
[2018-06-08] MEDS: Acetaminophen 325 MG TAB PO PRN (15:06)
[2018-06-08] MEDS: Nystatin 500,000 UNITS/5 ML UDCUP SSW SCH ×2 (16:37→20:49)
[2018-06-08] MEDS: Lisinopril 10 MG TAB PO SCH (20:48)
[2018-06-08] MEDS: Atorvastatin Calcium 40 MG TAB PO SCH (20:48)
[2018-06-09] MEDS: Furosemide 40 MG/4 ML VIAL SLOW IVP SCH ×2 (05:29→13:21)
[2018-06-09] MEDS: Carvedilol 3.125 MG TAB PO SCH (08:00)
[2018-06-09] MEDS: Aspirin 81 mg Enteric Coated Tablet PO SCH (08:00)
[2018-06-09] MEDS: Pramipexole Di-HCl 1 MG TAB PO SCH ×2 (08:01→21:00)
[2018-06-09] MEDS: Lisinopril 10 MG TAB PO SCH (08:01)
[2018-06-09] MEDS: Nystatin 500,000 UNITS/5 ML UDCUP SSW SCH ×4 (08:01→21:01)
[2018-06-09] MEDS: Enoxaparin Sodium 40 MG/0.4 ML SYRINGE SC SCH (08:01)
[2018-06-09] MEDS: Potassium Chloride 20 MEQ TAB PO SCH (08:01)
[2018-06-09] MEDS: Famotidine 20 MG TAB PO SCH ×2 (08:01→21:01)
[2018-06-09] MEDS: hydrALAZINE 25 MG TAB PO SCH ×4 (08:02→21:00)
--- NOTE | 2018-06-09 09:02 | PDOC.PN ---
- Subjective Encounter Start Date: 06/09/18 Encounter Start Time: 09:03 Subjective: no chest pain or sob - Objective Resuscitation Status - Order Detail: 06/06/18 08:44 Resuscitation Status Routine Resuscitation Status: FULL: Full Resuscitation Discussed with: patient SARAVANAN Reviewed: Yes Vital Signs & Weight: Vital Signs (12 hours) Temp Pulse Resp BP Pulse Ox 06/09/18 07:42 94 L 06/09/18 07:41 67 16 94 L 06/09/18 07:28 97.8 F 72 16 199/88 H 94 L 06/09/18 04:00 98.2 F 72 20 177/76 H 96 06/09/18 00:56 68 16 93 L Weight Admit Weight 239 lb 3 oz Weight 233 lb 9.6 oz I&O: 06/08/18 06/09/18 06/10/18 06:59 06:59 06:59 Intake Total 1310 1120 Output Total 2200 1200 Balance -890 -80 Result Diagrams: 06/07/18 05:02 06/07/18 05:02 Phys Exam - Physical Examination Neck: no JVD Respiratory: clear to auscultation bilateral Cardiovascular: RRR, no significant murmur Gastrointestinal: soft, non-tender Musculoskeletal: no edema Dx/Plan (1) COPD exacerbation Code(s): J44.1 - CHRONIC OBSTRUCTIVE PULMONARY DISEASE W (ACUTE) EXACERBATION Status: Resolved (2) Hypertension Code(s): I10 - ESSENTIAL (PRIMARY) HYPERTENSION Status: Chronic Qualifiers: Hypertension type: essential hypertension Comment: 1. poorly controlled, adjustment of home medication due to hypotension , will increase lisinopril to 20mg po daily and PRN hydralazine for ssyloic >160 2. follow up and monitor and adjustment of medication (3) Restless legs syndrome Status: Chronic Comment: Restart pramipexole she take Twice daily. (4) Thrush, oral Code(s): B37.0 - CANDIDAL STOMATITIS Status: Acute - Plan echo pending. BP still elevated, increase apresoline, DASIA -: reluctant to increase coreg due to hx of bradycardia * .
--- NOTE | 2018-06-09 09:04 | PDOC.EVN ---
Event Note - Event Note Event Note: failed to include acuye on chronic diastolic HF on problem list
[2018-06-09] MEDS: Lisinopril 20 MG TAB PO SCH (21:01)
[2018-06-09] MEDS: Atorvastatin Calcium 40 MG TAB PO SCH (21:01)
[2018-06-10] MEDS: Carvedilol 3.125 MG TAB PO SCH ×2 (00:58→08:55)
[2018-06-10] MEDS: Acetaminophen 325 MG TAB PO PRN (01:40)
--- NOTE | 2018-06-10 08:34 | PDOC.PN ---
- Subjective Encounter Start Date: 06/10/18 Encounter Start Time: 08:33 Subjective: no sob, etc - Objective Resuscitation Status - Order Detail: 06/06/18 08:44 Resuscitation Status Routine Resuscitation Status: FULL: Full Resuscitation Discussed with: triny COE Reviewed: Yes Vital Signs & Weight: Vital Signs (12 hours) Temp Pulse Resp BP BP BP Pulse Ox 06/10/18 06:47 94 L 06/10/18 06:44 63 16 94 L 06/10/18 03:32 97.7 F 81 19 144/65 H 92 L 06/10/18 01:08 73 16 92 L 06/10/18 00:00 78 18 175/73 H 93 L 06/09/18 21:01 149/67 H 06/09/18 21:00 82 149/67 H Weight Admit Weight 239 lb 3 oz Weight 233 lb 9.6 oz I&O: 06/09/18 06/10/18 06/11/18 06:59 06:59 06:59 Intake Total 1120 1560 Output Total 1200 600 Balance -80 960 Result Diagrams: 06/07/18 05:02 06/07/18 05:02 Phys Exam - Physical Examination Neck: no JVD Respiratory: clear to auscultation bilateral Cardiovascular: RRR, no significant murmur Gastrointestinal: soft, non-tender Musculoskeletal: no edema Dx/Plan (1) COPD exacerbation Code(s): J44.1 - CHRONIC OBSTRUCTIVE PULMONARY DISEASE W (ACUTE) EXACERBATION Status: Resolved (2) Hypertension Code(s): I10 - ESSENTIAL (PRIMARY) HYPERTENSION Status: Chronic Qualifiers: Hypertension type: essential hypertension Comment: 1. poorly controlled, adjustment of home medication due to hypotension , will increase lisinopril to 20mg po daily and PRN hydralazine for ssyloic >160 2. follow up and monitor and adjustment of medication (3) Restless legs syndrome Status: Chronic Comment: Restart pramipexole she take Twice daily. (4) Thrush, oral Code(s): B37.0 - CANDIDAL STOMATITIS Status: Acute - Plan doing well, transfer to rehab * .
[2018-06-10] MEDS: hydrALAZINE 25 MG TAB PO SCH (08:54)
[2018-06-10] MEDS: Potassium Chloride 20 MEQ TAB PO SCH (08:54)
[2018-06-10] MEDS: Aspirin 81 mg Enteric Coated Tablet PO SCH (08:54)
[2018-06-10] MEDS: Famotidine 20 MG TAB PO SCH (08:55)
[2018-06-10] MEDS: Lisinopril 20 MG TAB PO SCH (08:55)
[2018-06-10] MEDS: Enoxaparin Sodium 40 MG/0.4 ML SYRINGE SC SCH (08:56)
[2018-06-10] MEDS: Nystatin 500,000 UNITS/5 ML UDCUP SSW SCH (08:56)
[2018-06-10] MEDS ORDERED: Furosemide 40 MG TAB PO SCH (09:00)
[2018-06-10 09:16] VITALS: TEMP 97.9
[2018-06-10] MEDS: Pramipexole Di-HCl 1 MG TAB PO SCH (09:50)
[2018-06-10 09:54] VITALS: BP 158/69
--- NOTE | 2018-06-10 10:17 | DIS ---
DATE OF ADMISSION: 06/06/2018 DATE OF DISCHARGE: 06/10/2018 ADDENDUM: PRIMARY CARE PROVIDER: Dr. Selwyn Stein. Only changes are hydralazine 25 mg p.o. t.i.d. changed to 50 mg p.o. t.i.d. Echocardiogram reported as pending, now available report states EF 55% to 60% with diastolic dysfunction. The remainder of the discharge summary is unchanged. Job ID: [id number]
--- NOTE | 2018-06-12 19:27 | EKG ---
Test Reason : SOB Blood Pressure : / mmHG Vent. Rate : 080 BPM Atrial Rate : 080 BPM P-R Int : 144 ms QRS Dur : 130 ms QT Int : 410 ms P-R-T Axes : 032 033 -05 degrees QTc Int : 472 ms Normal sinus rhythm Right bundle branch block T wave abnormality, consider inferior ischemia S1 Q3 T3 Abnormal ECG No changes [id number] Confirmed by SARA SERVIN ([id number]), mapping editor RYLAN BUSTOS ([id number]) on 06/12/2018 7:27:03 PM Referred By: GARETH Confirmed By:SARA SERVIN
--- NOTE | 2018-06-14 13:41 | PQF ---
[employer] ELENI Wills MAHNAZAntony Tyler MD [id number] CLINICAL DOCUMENTATION CLARIFICATION FORM: POST DISCHARGE Addendum to original discharge summary date: ____ Late entry note date: __ DATE: 06/14/2018 ATTN: DR DORINA SÁNCHEZ Please exercise your independent, professional judgment in responding to the clarification form. Clinical indicators are provided on the bottom of this form for your review Please check appropriate box(s): [ ] Aspiration Pneumonia [ ] Aspiration Bronchitis [ ] Empirically treating Gram Negative Pneumonia [ ] Empirically treating Anaerobic Pneumonia [ ] Pneumonia secondary to (specify organism / underlying disease) [ ] Simple Pneumonia (community acquired - nosocomial) [ ] Bronchopneumonia [ ] Pneumonia of unknown etiology [ ] Other diagnosis [ ] Unable to determine In addition, please specify: Present on Admission (POA): [ ] Yes [ ] No [ ] Unable to determine For continuity of documentation, please document condition throughout progress notes and discharge summary. Thank You. CLINICAL INDICATORS - SIGNS / SYMPTOMS / LABS Fever, Chest pain, expectoration Elevated WBC COUNT 16.3 SOB, CXR results MILD PULMONARY VASCULAR CONGESTION TREATMENT: ANTIBIOTICS : LEVOFLOXACIN, MTDD
== END 2018-06-10 11:26 | disposition home or self-care (01) | DRG 292 ==
LOC: ERS 04:56 → ERHOLD 06:46 → 2NO 17:38
PROVIDERS: ADMIT Internal Medicine; ATTEND Internal Medicine
PROC: B246ZZZ Ultrasonography of Right and Left Heart (ICD-10-PCS; principal; 2018-06-09)
DX: I11.0 Hypertensive heart disease with heart failure (principal); J44.1 Chronic obstructive pulmonary disease with (acute) exacerbation; Z68.41 Body mass index [BMI] 40.0-44.9, adult; B37.0 Candidal stomatitis; I50.33 Acute on chronic diastolic (congestive) heart failure; G25.81 Restless legs syndrome; K21.9 Gastro-esophageal reflux disease without esophagitis; I25.10 Atherosclerotic heart disease of native coronary artery without angina pectoris; E78.5 Hyperlipidemia, unspecified; E66.9 Obesity, unspecified
CPT/HCPCS: 36415; 71045; 80048; 80053; 82805; 83605; 83880; 84484; 85025; 87040; 87804; 90471; 90662; 93005; 93306; 93798; 94640; 94660; 96365; 96366; 96367; 96372; 96375; 96376; G0008; J0360; J0456; J0696; J1100; J1650; J1940; J1956; J7620

== ENCOUNTER 2018-06-29 06:57 | Emergency (ER) | payer MEDICARE, BC ==
[2018-06-29 08:13] LABS: #Eosinphils 0.4 thou/uL (0.0-0.7); #Lymphocytes 1.7 thou/uL (1.20-3.40); #Monocytes 0.5 thou/uL (0.11-0.59); #Neutrophils 5.3 thou/uL (1.40-6.50); %Basophils 0.2 % (0.0-1.0); %Eosinophils 4.4 % (0.0-10.0); %Lymphocytes 21.8 % (21.0-51.0); %Monocytes 6.8 % (0.0-10.0); %Neutrophils 66.8 % (42.0-75.0); Hemoglobin 11.3 g/dL (12.0-16.0); Mean Corpuscular HGB CONC 30.2 g/dL (32.0-36.0); Mean Corpuscular Hemoglobin 27.4 pg (27.0-31.0); Mean Corpuscular Volume 90.7 fL (78.0-98.0); Platelet Count 156 thou/uL (130-400); RBC Distribution Width 13.9 % (11.5-14.5); Red Blood Cell (RBC) Count 4.13 mill/uL (4.20-5.40); White Blood Cell (WBC) Count 7.9 thou/uL (4.8-10.8)
[2018-06-29 08:32] LABS: ALT (SGPT) 9 U/L (8-55); AST (SGOT) 15 U/L (5-34); Albumin 3.2 g/dL (3.4-4.8); Alkaline Phosphatase 117 U/L (40-150); Anion Gap 10 mmol/L (10-20); BUN (Urea Nitrogen) 18 mg/dL (9.8-20.1); Bilirubin, Total 0.4 mg/dL (0.2-1.2); Calc. Creatinine Clearance 0 mL/min (70-130); Carbon Dioxide 27 mmol/L (23-31); Chloride 107 mmol/L (98-107); Estimated GFR-MDRD 79; Globulin 4.6 g/dL (2.4-3.5); Glucose 107 mg/dL (83-110); Potassium 3.5 mmol/L (3.5-5.1); Protein, Total 7.8 g/dL (6.0-8.3); Sodium 140 mmol/L (136-145)
--- NOTE | 2018-06-29 08:58 | RAD ---
PORTABLE CHEST: Date: 06/29/18 HISTORY: Respiratory distress. COMPARISON: 06/06/18. FINDINGS: Heart size is enlarged. Pulmonary vessels are engorged. Similar in appearance to the previous exam. C hanges may be baseline chronic change for this patient. IMPRESSION: Cardiomegaly with mild vascular engorgement. Increased interstitial markings similar to the previous study and may be entirely chronic in nature. POS: NATA
[2018-06-29] MEDS ORDERED: Aspirin 325 MG TAB ONE (09:04)
[2018-06-29] MEDS ORDERED: Furosemide 40 MG/4 ML VIAL ONE (09:04)
[2018-06-29 09:09] LABS: Bilirubin Negative (Negative); Blood, Urine Negative (Negative); Clarity CLOUDY (Clear); Glucose, Urine (Dipstick) Negative (Negative); Leukocyte Moderate (Negative); Nitrite Negative (Negative); Protein, Urine (Dipstick) Trace mg/dL (Neg-Trace); Specific Gravity, Urine 1.024 (1.002-1.036); Urobilinogen 0.2 mg/dL (0.2-1.0)
[2018-06-29 09:10] LABS: Squamous Epithelial 21-50 HPF (0-3); WBC/HPF 21-50 HPF (0-3)
[2018-06-29 09:15] LABS: Pathc Cast-AUWi Flag 4.36 (0-2.49); Yeast-AUWi Flag 79.9 (0-25.0)
[2018-06-29 09:29] LABS: Bacteria/HPF 2+ HPF (None Seen)
[2018-06-29 09:30] LABS: Yeast-All Forms Rare HPF (None Seen)
== END 2018-06-29 09:36 | disposition home or self-care (01) ==
LOC: ERS 06:57
DX: I11.0 Hypertensive heart disease with heart failure (principal); I50.9 Heart failure, unspecified; K21.9 Gastro-esophageal reflux disease without esophagitis; F41.9 Anxiety disorder, unspecified; Z79.899 Other long term (current) drug therapy; Z79.82 Long term (current) use of aspirin
CPT/HCPCS: 36415; 71045; 80053; 81003; 81015; 83605; 83880; 84484; 85025; 93005; 94640; 94760; J1940; J7620

== ENCOUNTER 2019-03-05 08:25 | Inpatient (IN) | payer MEDICARE, BC ==
[2019-03-05 09:15] LABS: #Basophils 0.1 thou/uL (0.0-0.2); #Eosinphils 0.3 thou/uL (0.0-0.7); #Lymphocytes 1.6 thou/uL (1.20-3.40); #Monocytes 0.6 thou/uL (0.11-0.59); #Neutrophils 6.7 thou/uL (1.40-6.50); %Basophils 0.7 % (0.0-1.0); %Eosinophils 3.2 % (0.0-10.0); %Lymphocytes 17.6 % (21.0-51.0); %Monocytes 6.6 % (0.0-10.0); Hemoglobin 12.8 g/dL (12.0-16.0); Mean Corpuscular HGB CONC 32.1 g/dL (32.0-36.0); Mean Corpuscular Hemoglobin 28.4 pg (27.0-31.0); Mean Corpuscular Volume 88.5 fL (78.0-98.0); Mean Platelet Volume 10.1 fL (7.4-10.4); Platelet Count 156 thou/uL (130-400); RBC Distribution Width 13.9 % (11.5-14.5); White Blood Cell (WBC) Count 9.3 thou/uL (4.8-10.8)
[2019-03-05 09:43] LABS: AST (SGOT) 15 U/L (5-34); Albumin 3.8 g/dL (3.4-4.8); Alkaline Phosphatase 114 U/L (40-110); Anion Gap 11 mmol/L (10-20); BUN (Urea Nitrogen) 20 mg/dL (9.8-20.1); Bilirubin, Total 0.5 mg/dL (0.2-1.2); Calc. Creatinine Clearance 0 mL/min (70-130); Calcium 8.9 mg/dL (7.8-10.44); Carbon Dioxide 31 mmol/L (23-31); Chloride 105 mmol/L (98-107); Estimated GFR-MDRD 75; Globulin 3.2 g/dL (2.4-3.5); Glucose 108 mg/dL (83-110); Potassium 3.9 mmol/L (3.5-5.1); Sodium 143 mmol/L (136-145)
[2019-03-05 09:55] LABS: ALT (SGPT) 12 U/L (8-55)
[2019-03-05] MEDS ORDERED: Furosemide 40 MG/4 ML VIAL ONE ×2 (12:29→14:17)
--- NOTE | 2019-03-05 13:16 | RAD ---
FRONTAL VIEW CHEST: COMPARISON: 06/29/2018. INDICATION: Dyspnea. FINDINGS: There is added density of the left lung base, obscured by cardiac silhouette. There is enlargement o f the cardiac silhouette and pulmonary vasculature with bilateral interstitial prominence. Exam is grossly stable to prior exam. IMPRESSION: Findings favor decompensated congestive heart failure. POS: [facility]
[2019-03-05] MEDS ORDERED: Ondansetron PF 4 MG/2 ML Vial IVP PRN (13:26)
[2019-03-05] MEDS ORDERED: Ondansetron ODT 4 MG TAB PO PRN (13:26)
[2019-03-05] MEDS ORDERED: hydrALAZINE 25 MG TAB ONE (14:17)
--- NOTE | 2019-03-05 15:32 | HP ---
PRIMARY CARE PHYSICIAN: Dr. Stein at [facility]. CHIEF COMPLAINT: Shortness of breath. HISTORY OF PRESENT ILLNESS: Ms. Adams is a 73-year-old female with a past medical history of hypertension, hyperlipidemia, gastroesophageal reflux disease, diastolic heart failure, and restless legs syndrome, presented to the ED earlier today due to worsening shortness of breath and cough. She states that the cough started roughly on Thursday and had gradually worsened each day. She states that the shortness of breath really got bad last night to make her want to come and be seen. Her initial workup included a 1-view chest x-ray, which showed findings favoring a decompensated congestive heart failure. Therefore, she was treated with IV furosemide, which had helped with her symptoms. Looking back at her history, she had a recent hospitalization back in June of 2018 for these similar symptoms. During that visit, she had undergone an echocardiogram, which showed a grade 2 diastolic dysfunction with a preserved ejection fraction. She had denied any fever or chills; any headache, blurred vision, or dizziness; any chest pain, palpitations, abdominal pain, nausea, or vomiting. Her blood pressure and other vital signs remained stable, and she was found to be in sinus rhythm on the monitor. REVIEW OF SYSTEMS: All other systems were reviewed and found to be negative unless mentioned in the HPI. PAST MEDICAL HISTORY: Hypertension, hyperlipidemia, diastolic congestive heart failure, restless legs syndrome, gastroesophageal reflux disease, and COPD. PAST SURGICAL HISTORY: Cholecystectomy, left arm surgery, left ear surgery, and a past history of a trach and PEG tube. PAST PSYCHIATRIC HISTORY: Includes anxiety. SOCIAL HISTORY: The patient denies alcohol, tobacco, or illicit drug use. ALLERGIES: AMOXICILLIN, PENICILLINS, AND . CURRENT HOME MEDICATIONS: 1. Furosemide 40 mg oral twice daily. 2. Aspirin 81 mg daily. 3. Carvedilol 3.125 mg p.o. b.i.d. 4. Pepcid 20 mg p.o. b.i.d. 5. Hydralazine 50 mg p.o. t.i.d. 6. Lisinopril 10 mg oral daily. 7. Potassium chloride 20 mEq p.o. daily. 8. Mirapex 2 mg in the morning and 3 mg at bedtime. 9. Sertraline 100 mg p.o. daily. PHYSICAL EXAMINATION: VITAL SIGNS: BP 151/62, pulse 55, respirations 25, O2 saturation 95% on room air. GENERAL: The patient is awake, alert, and oriented x3. She is currently lying comfortably in bed and in no acute distress. Her son is at bedside. HEENT: Atraumatic, normocephalic. Pupils are round and reactive to light. Extraocular muscles intact. Moist mucous membranes noted. NECK: Soft, supple. Trachea midline. CARDIOVASCULAR: Positive S1 and S2. Regular rate and rhythm. No murmur auscultated. RESPIRATORY: Coarse breath sounds heard at the bases bilaterally. ABDOMEN: Soft, nontender. Bowel sounds present. MUSCULOSKELETAL: Moves all extremities equal. Pedal and radial pulses 2+ bilaterally. 1+ edema noted bilateral lower extremities below the knee. SKIN: Warm, dry, and intact. No rashes. No ulceration noted. PSYCHIATRIC: Good mood and affect. LABORATORY DATA: WBC 9.3, RBC 4.50, hemoglobin 12.8, platelet 156. Sodium 143, potassium 3.9, anion gap 11, BUN 20, creatinine 0.75, estimated GFR 75, glucose 108. Troponin less than 0.010. BNP 305.6. DIAGNOSTIC IMAGING STUDIES: One-view chest x-ray revealed findings favoring decompensated congestive heart failure. ASSESSMENT/PLAN: 1. Acute on chronic diastolic heart failure. The patient will be treated symptomatically along with IV furosemide twice daily. We will also recheck an echocardiogram for her cardiac status. Her cardiac enzymes are negative; however, BNP is bumped at 305.6. Her last echo was in June 2018, which showed a preserved ejection fraction; however, it did not agree to diastolic dysfunction. 2. Hypertension. Continue home regimen. 3. Gastroesophageal reflux disease. Continue PPI. 4. History of anxiety. Continue home regimen. 5. Deep venous thrombosis and gastrointestinal prophylaxis. 6. Code status, full code. 7. Surrogate decision maker is her daughter, Miladys. DISPOSITION: Pending further workup and clinical findings. Job ID: [id number]
[2019-03-05] MEDS: Furosemide 40 MG/4 ML VIAL SLOW IVP SCH (18:30)
[2019-03-05] MEDS: hydrALAZINE 25 MG TAB PO SCH ×2 (18:30→21:28)
[2019-03-05 19:21] VITALS: BMI 43.4
[2019-03-05] MEDS ORDERED: Non-Formulary Item 1 EACH (Famotidine 20 MG) PO SCH (21:00)
[2019-03-05] MEDS: Famotidine 20 MG TAB PO SCH (21:27)
[2019-03-05] MEDS: Carvedilol 3.125 MG TAB PO SCH (21:27)
[2019-03-05] MEDS: Pramipexole Di-HCl 1 MG TAB PO SCH (21:28)
[2019-03-06 05:57] LABS: #Basophils 0.1 thou/uL (0.0-0.2); #Eosinphils 0.3 thou/uL (0.0-0.7); #Lymphocytes 1.8 thou/uL (1.20-3.40); #Monocytes 0.7 thou/uL (0.11-0.59); #Neutrophils 6.5 thou/uL (1.40-6.50); %Basophils 0.6 % (0.0-1.0); %Eosinophils 3.2 % (0.0-10.0); %Lymphocytes 19.1 % (21.0-51.0); %Monocytes 7.2 % (0.0-10.0); Mean Corpuscular HGB CONC 32.3 g/dL (32.0-36.0); Mean Corpuscular Hemoglobin 28.4 pg (27.0-31.0); Mean Platelet Volume 10.7 fL (7.4-10.4); Platelet Count 168 thou/uL (130-400); RBC Distribution Width 13.7 % (11.5-14.5); Red Blood Cell (RBC) Count 4.22 mill/uL (4.20-5.40); White Blood Cell (WBC) Count 9.3 thou/uL (4.8-10.8)
[2019-03-06] MEDS: Furosemide 40 MG/4 ML VIAL SLOW IVP SCH ×2 (06:18→14:43)
[2019-03-06 06:20] LABS: Anion Gap 9 mmol/L (10-20); BUN (Urea Nitrogen) 19 mg/dL (9.8-20.1); Calc. Creatinine Clearance 113 mL/min (70-130); Calcium 8.8 mg/dL (7.8-10.44); Carbon Dioxide 31 mmol/L (23-31); Chloride 103 mmol/L (98-107); Estimated GFR-MDRD 78; Glucose 99 mg/dL (83-110); Potassium 3.5 mmol/L (3.5-5.1); Sodium 139 mmol/L (136-145)
[2019-03-06] MEDS ORDERED: Lisinopril 10 MG TAB PO SCH (09:00)
[2019-03-06] MEDS ORDERED: hydrALAZINE 25 MG TAB PO SCH (09:00)
[2019-03-06] MEDS: Pramipexole Di-HCl 1 MG TAB PO SCH ×2 (09:44→21:10)
[2019-03-06] MEDS: Famotidine 20 MG TAB PO SCH ×2 (09:44→21:05)
[2019-03-06] MEDS: Aspirin 81 mg Enteric Coated Tablet PO SCH (09:44)
[2019-03-06] MEDS: Potassium Chloride 20 MEQ TAB PO SCH (09:45)
[2019-03-06] MEDS: Carvedilol 3.125 MG TAB PO SCH ×2 (09:46→21:05)
[2019-03-06] MEDS: Enoxaparin Sodium 40 MG/0.4 ML SYRINGE SC SCH (09:47)
--- NOTE | 2019-03-06 10:52 | PDOC.HOSPP ---
- Subjective Subjective: Seen and examined. Patient states she is feeling better. Less shortness of breath. Improving lower extremity edema. Blood pressure improved after medications have been restarted. No other acute complaints at this time. - Objective Vital Signs & Weight: Vital Signs (12 hours) Temp Pulse Resp BP Pulse Ox 03/06/19 07:14 97.6 F 60 17 123/58 L 100 03/06/19 04:00 97.8 F 62 16 174/80 H 98 Weight Weight 237 lb 6 oz I&O: 03/05/19 03/06/19 03/07/19 06:59 06:59 06:59 Intake Total 400 Output Total 900 Balance -500 Result Diagrams: 03/06/19 05:32 03/06/19 05:32 Radiology Reviewed by me: Yes (CXR) Hospitalist ROS - Review of Systems All other systems reviewed; all pertinent +/- noted in HPI/Subj - Medication Medications: Active Medications Generic Name Dose Route Start Last Admin Trade Name Freq PRN Reason Stop Dose Admin Aspirin 81 mg 03/06/19 09:00 03/06/19 09:44 Ecotrin PO 81 mg DAILY BERTIN Administration Carvedilol 3.125 mg 03/05/19 21:00 03/06/19 09:46 Coreg PO 3.125 mg BID BERTIN Administration Enoxaparin Sodium 40 mg 03/06/19 09:00 03/06/19 09:47 Lovenox SC 40 mg 0900 BERTIN Administration Famotidine 20 mg 03/05/19 21:00 03/06/19 09:44 Pepcid PO 20 mg BID BERTIN Administration Furosemide 40 mg 03/05/19 14:00 03/06/19 06:18 Lasix SLOW IVP 40 mg 0600,1400 BERTIN Administration Hydralazine HCl 100 mg 03/06/19 09:00 03/06/19 09:46 Apresoline PO 50 mg TID BERTIN Administration Lisinopril 10 mg 03/06/19 09:00 03/06/19 09:45 Zestril PO 10 mg DAILY BERTIN Administration Potassium Chloride 20 meq 03/06/19 09:00 03/06/19 09:45 K-Dur PO 20 meq DAILY BERTIN Administration Pramipexole Dihydrochloride 2 mg 03/06/19 09:00 03/06/19 09:44 Mirapex PO 2 mg QAM BERTIN Administration Pramipexole Dihydrochloride 3 mg 03/05/19 21:00 03/05/19 21:28 Mirapex PO 3 mg HS BERTIN Administration Sodium Chloride 10 ml 03/05/19 21:00 03/06/19 09:48 Flush - Normal Saline IVF 10 ml Q12HR BERTIN Administration - Exam General Appearance: NAD, awake alert Eye: anicteric sclera ENT: normocephalic atraumatic, moist mucosa Neck: symmetric, no lymphadenopathy Heart: no murmur, no gallops, no rubs Respiratory: no wheezes, no ronchi, normal chest expansion, no tachypnea, rales Gastrointestinal: soft, non-tender, no guarding, no rigidity Extremities: 2+ LE edema Skin: no lesions, no rashes Neurological: cranial nerve grossly intact, no weakness Musculoskeletal: no muscle wasting Psychiatric: normal affect, A&O x 3 Hosp A/P (1) Acute on chronic diastolic (congestive) heart failure Code(s): I50.33 - ACUTE ON CHRONIC DIASTOLIC (CONGESTIVE) HEART FAILURE Status : Acute (2) COPD (chronic obstructive pulmonary disease) Status: Chronic (3) CHF (congestive heart failure) Code(s): I50.9 - HEART FAILURE, UNSPECIFIED Status: Acute Qualifiers: Qualified Code(s): I50.32 - Chronic diastolic (congestive) heart failure (4) Depression Code(s): F32.9 - MAJOR DEPRESSIVE DISORDER, SINGLE EPISODE, UNSPECIFIED Status : Chronic (5) Hypertension Code(s): I10 - ESSENTIAL (PRIMARY) HYPERTENSION Status: Chronic Qualifiers: Hypertension type: essential hypertension (6) Morbid obesity Code(s): E66.01 - MORBID (SEVERE) OBESITY DUE TO EXCESS CALORIES Status: Chronic (7) Obesity Code(s): E66.9 - OBESITY, UNSPECIFIED Status: Chronic (8) Restless legs syndrome Status: Chronic - Plan Plan: medical unit with telemetry cardiomyopathy regimen: -IV Lasix -hydralazine -carvedilol -Lisinopril echocardiogram pending to view chest x-ray tomorrow a.m. to monitor for resolution of heart failure Consider cardiology consult if patient does not improve breathing well on room air replace electrolytes as needed continue other home medications as able
[2019-03-06] MEDS: hydrALAZINE 25 MG TAB PO SCH ×2 (14:42→21:05)
[2019-03-06] MEDS: Acetaminophen 325 MG TAB PO PRN ×2 (14:45→22:48)
[2019-03-06] MEDS ORDERED: FLU VACC TS2019-20(65YR UP)/PF 180 MCG/0.5 ML SYRINGE IM ONE (21:00)
[2019-03-07] MEDS: Furosemide 40 MG/4 ML VIAL SLOW IVP SCH ×2 (06:29→14:36)
--- NOTE | 2019-03-07 07:15 | PDOC.HOSPP ---
- Subjective Encounter Date: 03/07/19 Encounter Time: 07:14 Subjective: sob improved, no ankle edema - Objective Vital Signs & Weight: Vital Signs (12 hours) Temp Pulse Resp BP Pulse Ox 03/07/19 03:33 98.7 F 66 16 135/65 93 L 03/06/19 21:05 59 L 03/06/19 20:00 97.7 F 59 L 18 125/58 L 100 Weight Weight 241 lb 12.8 oz I&O: 03/06/19 03/07/19 03/08/19 06:59 06:59 06:59 Intake Total 400 1564 Output Total 900 1550 Balance -500 14 Result Diagrams: 03/06/19 05:32 03/06/19 05:32 Hospitalist ROS - Medication Medications: Active Medications Generic Name Dose Route Start Last Admin Trade Name Freq PRN Reason Stop Dose Admin Acetaminophen 650 mg 03/05/19 13:26 03/06/19 22:48 Tylenol PO 650 mg Q4H PRN Administration Headache/Fever/Mild Pain (1-3) Aspirin 81 mg 03/06/19 09:00 03/06/19 09:44 Ecotrin PO 81 mg DAILY BERTIN Administration Enoxaparin Sodium 40 mg 03/06/19 09:00 03/06/19 09:47 Lovenox SC 40 mg 0900 BERTIN Administration Famotidine 20 mg 03/05/19 21:00 03/06/19 21:05 Pepcid PO 20 mg BID BERTIN Administration Furosemide 40 mg 03/05/19 14:00 03/07/19 06:29 Lasix SLOW IVP 40 mg 0600,1400 BERTIN Administration Hydralazine HCl 50 mg 03/06/19 15:00 03/06/19 21:05 Apresoline PO 50 mg TID BERTIN Administration Potassium Chloride 20 meq 03/06/19 09:00 03/06/19 09:45 K-Dur PO 20 meq DAILY BERTIN Administration Pramipexole Dihydrochloride 2 mg 03/06/19 09:00 03/06/19 09:44 Mirapex PO 2 mg QAM BERTIN Administration Pramipexole Dihydrochloride 3 mg 03/05/19 21:00 03/06/19 21:10 Mirapex PO 3 mg HS BERTIN Administration Sertraline HCl 100 mg 03/06/19 09:00 03/06/19 11:16 Zoloft PO 100 mg DAILY BERTIN Administration Sodium Chloride 10 ml 03/05/19 21:00 03/06/19 21:11 Flush - Normal Saline IVF 10 ml Q12HR BERTIN Administration Sodium Chloride 10 ml 03/05/19 13:34 03/06/19 14:47 Flush - Normal Saline IVF 10 ml PRN PRN Administration Saline Flush - Exam General Appearance: awake alert Neck: no JVD Heart: RRR, no murmur Respiratory - other findings: scant basilar rales, OW clear Gastrointestinal: soft, normal bowel sounds Extremities: no edema Hosp A/P (1) COPD (chronic obstructive pulmonary disease) Status: Chronic (2) Acute on chronic diastolic (congestive) heart failure Code(s): I50.33 - ACUTE ON CHRONIC DIASTOLIC (CONGESTIVE) HEART FAILURE Status : Acute (3) Hypertension Code(s): I10 - ESSENTIAL (PRIMARY) HYPERTENSION Status: Chronic Qualifiers: Hypertension type: essential hypertension (4) Restless legs syndrome Status: Chronic - Plan increase coreg to 6.25 mg bid reresume losartan cont iv diuresis 1 more day
[2019-03-07] MEDS: Potassium Chloride 20 MEQ TAB PO SCH (09:21)
[2019-03-07] MEDS: hydrALAZINE 25 MG TAB PO SCH ×3 (09:21→20:59)
[2019-03-07] MEDS: Carvedilol 6.25 MG TAB PO SCH ×2 (09:22→20:58)
[2019-03-07] MEDS: Famotidine 20 MG TAB PO SCH ×2 (09:22→20:58)
[2019-03-07] MEDS: Pramipexole Di-HCl 1 MG TAB PO SCH ×2 (09:22→20:59)
[2019-03-07] MEDS: Aspirin 81 mg Enteric Coated Tablet PO SCH (09:23)
[2019-03-07] MEDS: Losartan 25 MG TAB PO SCH (09:23)
[2019-03-07] MEDS: Enoxaparin Sodium 40 MG/0.4 ML SYRINGE SC SCH (09:24)
--- NOTE | 2019-03-07 13:48 | RAD ---
PA AND LATERAL VIEWS CHEST: Date: 03/07/19 HISTORY: Shortness of breath. FINDINGS/IMPRESSION: Comparison made with exam of 03/05/19. The heart size is enlarged. The aorta is tortuous. No focal areas of consolidation, pneumothoraces, f rank pulmonary edema, or large effusions are seen. There are degenerative changes in the spine. Small posterior pleural effusions may be present. POS: OFF
[2019-03-08] MEDS: Furosemide 40 MG/4 ML VIAL SLOW IVP SCH (05:54)
--- NOTE | 2019-03-08 07:59 | DIS ---
DATE OF ADMISSION: 03/05/2019 DATE OF DISCHARGE: 03/08/2019 PRIMARY CARE PHYSICIAN: Dr. Stein at [facility]. DISPOSITION: Discharged home. FINAL DIAGNOSES: 1. Acute on chronic diastolic heart failure. 2. Hypertension. 3. Chronic obstructive pulmonary disease. 4. Gastroesophageal reflux disease. DISCHARGE MEDICATIONS: Are essentially the same as her home medicines except; 1. The dose of torsemide was increased from 20 daily to 20 mg p.o. b.i.d. 2. Pepcid 20 mg p.o. b.i.d. 3. K-Dur 20 mEq a day. 4. Mirapex 2 mg in the morning. 5. Pramipexole 3 mg at bedtime. 6. Zoloft 100 mg a day. 7. Hydralazine 50 mg three times a day. 8. Aspirin 81 mg a day. 9. Coreg 6.25 mg twice a day. 10. Losartan 25 mg a day. ALLERGIES: TO PENICILLINS, TUBERCULIN PURIFIED PROTEIN. DIET: Heart healthy. CODE STATUS: Full. PENDING AT TIME OF DISCHARGE: Nothing. HOSPITAL COURSE: The patient was admitted to [facility] through the emergency department with shortness of breath. Chest x-ray was suggestive of decompensated heart failure. Her BNP was mildly elevated at 305. Comprehensive metabolic profile unremarkable. CBC unremarkable. She was started on IV Lasix. Her chest x-ray has improved. Her chest is clear to physical exam. Echocardiogram was done, which revealed EF of 55% to 60%. with grade 2 diastolic dysfunction. As mentioned previously, the patient's home torsemide was increased to twice a day. No consultations were obtained. No procedures were done. She is being discharged to follow up with her PCP, Dr. Stein at [facility] in 1 week. Job ID: [id number]
[2019-03-08] MEDS: Enoxaparin Sodium 40 MG/0.4 ML SYRINGE SC SCH (08:53)
[2019-03-08] MEDS: Pramipexole Di-HCl 1 MG TAB PO SCH (08:54)
[2019-03-08] MEDS: Aspirin 81 mg Enteric Coated Tablet PO SCH (08:54)
[2019-03-08] MEDS: Famotidine 20 MG TAB PO SCH (08:55)
[2019-03-08] MEDS: Potassium Chloride 20 MEQ TAB PO SCH (08:55)
[2019-03-08] MEDS: Losartan 25 MG TAB PO SCH (08:55)
[2019-03-08] MEDS: Carvedilol 6.25 MG TAB PO SCH (08:55)
[2019-03-08] MEDS: hydrALAZINE 25 MG TAB PO SCH (08:56)
[2019-03-08 10:50] VITALS: BP 114/55; TEMP 97.9
--- NOTE | 2019-03-08 16:56 | EKG ---
Test Reason : Blood Pressure : / mmHG Vent. Rate : 060 BPM Atrial Rate : 060 BPM P-R Int : 166 ms QRS Dur : 148 ms QT Int : 476 ms P-R-T Axes : 036 033 -12 degrees QTc Int : 476 ms Normal sinus rhythm Right bundle branch block T wave abnormality, consider inferolateral ischemia Abnormal ECG Confirmed by TRINH MOONEY DO ([id number]), film and video editor ZEESHAN MCKNIGHT ([id number]) on 03/08/2019 4:55:54 PM Referred By: Confirmed By:TRINH MOONEY DO
== END 2019-03-08 11:38 | disposition home or self-care (01) | DRG 292 ==
LOC: ERS 08:25 → ERHOLD 13:00 → 2NO 17:36
PROVIDERS: ADMIT Internal Medicine; ATTEND Internal Medicine
DX: I11.0 Hypertensive heart disease with heart failure (principal); Z68.41 Body mass index [BMI] 40.0-44.9, adult; I50.33 Acute on chronic diastolic (congestive) heart failure; E78.5 Hyperlipidemia, unspecified; K21.9 Gastro-esophageal reflux disease without esophagitis; G25.81 Restless legs syndrome; F41.9 Anxiety disorder, unspecified; F32.9 Major depressive disorder, single episode, unspecified; E66.01 Morbid (severe) obesity due to excess calories; Z90.49 Acquired absence of other specified parts of digestive tract; Z88.6 Allergy status to analgesic agent; Z88.0 Allergy status to penicillin; Z79.82 Long term (current) use of aspirin; Z79.899 Other long term (current) drug therapy; J44.9 Chronic obstructive pulmonary disease, unspecified
CPT/HCPCS: 36415; 71045; 71046; 80048; 80053; 83880; 84484; 85025; 90471; 90662; 93005; 93306; 93798; 96374; G0008; J1650; J1940; Q0162

== ENCOUNTER 2019-06-27 13:15 | Emergency (ER) | payer MEDICARE, BC ==
--- NOTE | 2019-06-27 13:54 | RAD ---
EXAM: Single view of the chest HISTORY: Shortness of breath COMPARISON: 06/29/2018 FINDINGS: Single view of the chest shows an enlarged but stable cardiomediastinal silhouette. There i s no evidence of consolidation, mass, or pleural effusion. Degenerative changes are seen in the spine and left shoulder. IMPRESSION: No evidence of acute cardiopulmonary disease
[2019-06-27 14:01] LABS: #Basophils 0.1 thou/uL (0.0-0.2); #Eosinphils 0.3 thou/uL (0.0-0.7); #Lymphocytes 2.6 thou/uL (1.20-3.40); #Monocytes 0.7 thou/uL (0.11-0.59); #Neutrophils 7.8 thou/uL (1.40-6.50); %Basophils 0.6 % (0.0-1.0); %Eosinophils 2.7 % (0.0-10.0); %Lymphocytes 22.5 % (21.0-51.0); %Monocytes 6.3 % (0.0-10.0); %Neutrophils 67.9 % (42.0-75.0); Hemoglobin 12.9 g/dL (12.0-16.0); Mean Corpuscular HGB CONC 32.1 g/dL (32.0-36.0); Mean Corpuscular Hemoglobin 28.2 pg (27.0-31.0); Mean Corpuscular Volume 87.9 fL (78.0-98.0); Mean Platelet Volume 10.6 fL (7.4-10.4); Platelet Count 173 thou/uL (130-400); RBC Distribution Width 13.9 % (11.5-14.5); Red Blood Cell (RBC) Count 4.58 mill/uL (4.20-5.40); White Blood Cell (WBC) Count 11.5 thou/uL (4.8-10.8)
[2019-06-27 14:25] LABS: ALT (SGPT) 12 U/L (8-55); AST (SGOT) 17 U/L (5-34); Albumin 3.9 g/dL (3.4-4.8); Alkaline Phosphatase 127 U/L (40-110); Anion Gap 12 mmol/L (10-20); BUN (Urea Nitrogen) 26 mg/dL (9.8-20.1); Bilirubin, Total 0.5 mg/dL (0.2-1.2); CK (CPK) 92 U/L (29-168); Calc. Creatinine Clearance 0 mL/min (70-130); Calcium 9.2 mg/dL (7.8-10.44); Carbon Dioxide 31 mmol/L (23-31); Chloride 100 mmol/L (98-107); Estimated GFR-MDRD 59; Globulin 3.8 g/dL (2.4-3.5); Glucose 100 mg/dL (83-110); Potassium 3.5 mmol/L (3.5-5.1); Protein, Total 7.7 g/dL (6.0-8.3); Sodium 139 mmol/L (136-145)
[2019-06-27] MEDS ORDERED: Furosemide 20 MG/2 ML VIAL ONE (15:51)
== END 2019-06-27 16:25 | disposition home or self-care (01) ==
LOC: ERS 13:15
DX: I11.0 Hypertensive heart disease with heart failure (principal); I50.9 Heart failure, unspecified; J44.9 Chronic obstructive pulmonary disease, unspecified; K21.9 Gastro-esophageal reflux disease without esophagitis; F41.9 Anxiety disorder, unspecified; Z79.82 Long term (current) use of aspirin; Z79.899 Other long term (current) drug therapy
CPT/HCPCS: 36415; 71045; 80053; 82550; 83880; 84484; 85025; 93005; 96374; J1940

== ENCOUNTER 2019-07-27 13:09 | Outpatient (CLI) | payer MEDICARE, BC ==
--- NOTE | 2019-08-01 13:38 | MMO ---
Bilateral MAMMO Bilat Screen [facility]. CLINICAL HISTORY: Patient is 73 years old and is seen for screening. The patient has no family history of breast cancer. The patient has no personal history of cancer. VIEWS: The views performed were: bilateral craniocaudal with tomosynthesis and bilateral mediolateral oblique with tomosynthesis. FILMS COMPARED: The present examination has been compared to prior imaging studies performed at This study has been interpreted with the assistance of computer-aided detection. MAMMOGRAM FINDINGS: There are scattered fibroglandular densities. Benign calcifications are noted bilaterally. There is a small nodule in the right outer breast. In the left breast, there are no suspicious masses, calcifications or areas of architectural distortion. IMPRESSION: FINDING IN THE RIGHT BREAST REQUIRES ADDITIONAL EVALUATION. SPOT COMPRESSION IS RECOMMENDED. AN ULTRASOUND EXAM IS RECOMMENDED IF NEEDED. THE RESULTS OF THIS EXAM WERE SENT TO THE PATIENT. ACR BI-RADS Category 0 - Incomplete: Need additional imaging evaluation. [facility] will notify the patient of the need for additional imaging services. MAMMOGRAPHY NOTE: 1. A negative mammogram report should not delay a biopsy if a dominant of clinically suspicious mass is present. 2. Approximately 10% to 15% of breast cancers are not detected by mammography. 3. Adenosis and dense breasts may obscure an underlying neoplasm. Reported by: GONSALO SEPULVEDA MD Electonically Signed: [id number]
== END 2019-07-27 13:10 | disposition home or self-care (01) ==
LOC: BICMAMMO 13:09
PROVIDERS: ATTEND Family Medicine
DX: Z12.31 Encounter for screening mammogram for malignant neoplasm of breast (principal)
CPT/HCPCS: 77063; 77067

== ENCOUNTER 2019-08-05 09:57 | Outpatient (CLI) | payer MEDICARE, BC ==
--- NOTE | 2019-08-05 11:08 | MMO ---
Right Breast MAMMO Unilat Diag [facility]. CLINICAL HISTORY: Patient is 73 years old and is seen for diagnostic exam. VIEWS: The views performed were: . FILMS COMPARED: The present examination has been compared to prior imaging studies performed at on 07/27/2019 and 08/05/2019. This study has been interpreted with the assistance of computer-aided detection. MAMMOGRAM FINDINGS: There are scattered fibroglandular densities. Finding 1: There are stable benign appearing calcifications seen in the right breast. Finding 2: There is a round mass measuring 5 millimeters with microlobulated margins seen in the upper-outer region of the right breast. IMPRESSION: FINDING 1: STABLE CALCIFICATIONS IN THE RIGHT BREAST ARE BENIGN. FINDING 2: MASS IN THE RIGHT BREAST IS PROBABLY BENIGN. FOLLOW-UP IN 6 MONTHS IS RECOMMENDED. NO ULTRASOUND CORRELATE SEEN. THE RESULTS OF THIS EXAM WERE SENT TO THE PATIENT. ACR BI-RADS Category 3 - Probably benign finding - short interval follow-up suggested. [facility] will notify the patient of the need for additional imaging services. MAMMOGRAPHY NOTE: 1. A negative mammogram report should not delay a biopsy if a dominant of clinically suspicious mass is present. 2. Approximately 10% to 15% of breast cancers are not detected by mammography. 3. Adenosis and dense breasts may obscure an underlying neoplasm. Reported by: ANNY MAYERS MD Electonically Signed: [id number]
--- NOTE | 2019-08-05 11:39 | ULT ---
RIGHT BREAST ULTRASOUND: HISTORY: Followup nodule on mammogram. FINDINGS: The right breast is evaluated between the 7 o'clock and 12 o'clock position to evaluate a 0.5 cm nodu le seen on mammogram. No evidence for solid or cystic mass to account for the abnormal mammographic finding. IMPRESSION: BIRADS category 3, probably benign findings. Six-month followup right unilateral diagnostic mammogra m and right breast ultrasound is recommended for further assessment. Findings were discussed with the patient who was in agreement to proceeding to 6-month followup short -term surveillance.
== END 2019-08-05 09:58 | disposition home or self-care (01) ==
LOC: BICMAMMO 09:57
PROVIDERS: ATTEND Family Medicine
DX: N63.10 Unspecified lump in the right breast, unspecified quadrant (principal); R92.1 Mammographic calcification found on diagnostic imaging of breast
CPT/HCPCS: 76642; 77065; G0279

== ENCOUNTER 2020-02-14 13:20 | Outpatient (CLI) | payer MEDICARE, BC ==
--- NOTE | 2020-02-14 14:11 | MMO ---
Right Breast MAMMO Unilat Diag [facility]. CLINICAL HISTORY: Patient is 74 years old and is seen for follow-up at short-interval from prior study. The patient has no family history of breast cancer. The patient has no personal history of cancer. VIEWS: The views performed were: right craniocaudal with tomosynthesis; right mediolateral oblique with tomosynthesis; and right mediolateral with tomosynthesis. FILMS COMPARED: The present examination has been compared to prior imaging studies performed at [facility] on 07/27/2019, 08/05/2019 and 02/14/2020. This study has been interpreted with the assistance of computer-aided detection. MAMMOGRAM FINDINGS: There are scattered fibroglandular densities. Finding 1: There are stable benign appearing calcifications seen in the right breast. Finding 2: There is a stable round mass measuring 5 millimeters with microlobulated margins seen in the upper-outer region of the right breast. IMPRESSION: FINDING 1: STABLE CALCIFICATIONS IN THE RIGHT BREAST ARE BENIGN. FINDING 2: STABLE MASS IN THE RIGHT BREAST IS PROBABLY BENIGN. FOLLOW-UP IN 6 MONTHS IS RECOMMENDED. THE RESULTS OF THIS EXAM WERE SENT TO THE PATIENT. ACR BI-RADS Category 3 - Probably benign finding - short interval follow-up suggested. [facility] will notify the patient of the need for additional imaging services. MAMMOGRAPHY NOTE: 1. A negative mammogram report should not delay a biopsy if a dominant of clinically suspicious mass is present. 2. Approximately 10% to 15% of breast cancers are not detected by mammography. 3. Adenosis and dense breasts may obscure an underlying neoplasm. Reported by: ANNY MAYERS MD Electonically Signed: [id number]
--- NOTE | 2020-02-14 15:01 | ULT ---
RIGHT BREAST ULTRASOUND: HISTORY: The patient returns for 6-month followup imaging of the right breast. FINDINGS: The right breast is evaluated from the 6 o'clock to 12 o'clock position laterally to evaluate a small 0.5 cm mass on diagnostic mammogram. Again, there is no evidence for a definitive solid or cystic m ass in the right breast to account for the mammographic finding. There is one focal area at 12 o'marissa ck which contains some hyperechoic density measuring 0.4 x 0.5 x 0.6 cm, although I am not certain th at this represents the area of mammographic concern. IMPRESSION: BIRADS category 3, probably benign findings. Followup bilateral mammogram in 6 months which is a yea r from the patient's prior bilateral mammogram. In addition, consideration for a followup right jarrett st ultrasound at that time should be considered as well. Stable microlobulated mass on diagnostic ma mmogram. Echogenic focus seen at 12 o'clock 4 cm from the nipple, I am not certain whether this ultrasound fin ding corresponds to mammographic finding or not. POS: OFF
== END 2020-02-14 13:21 | disposition home or self-care (01) ==
LOC: BICMAMMO 13:20
PROVIDERS: ATTEND Family Medicine
DX: N63.10 Unspecified lump in the right breast, unspecified quadrant (principal); R92.1 Mammographic calcification found on diagnostic imaging of breast
CPT/HCPCS: 76642; 77065; G0279

== ENCOUNTER 2020-04-27 06:26 | Emergency (ER) | payer MEDICARE, BC ==
[2020-04-27 07:08] LABS: #Basophils 0.1 thou/uL (0.0-0.2); #Eosinphils 0.3 thou/uL (0.0-0.7); #Lymphocytes 1.8 thou/uL (1.20-3.40); #Monocytes 0.7 thou/uL (0.11-0.59); #Neutrophils 7.9 thou/uL (1.40-6.50); %Basophils 0.6 % (0.0-1.0); %Eosinophils 2.7 % (0.0-10.0); %Lymphocytes 16.6 % (21.0-51.0); %Monocytes 6.5 % (0.0-10.0); %Neutrophils 73.6 % (42.0-75.0); Hemoglobin 11.8 g/dL (12.0-16.0); Mean Corpuscular HGB CONC 32.2 g/dL (32.0-36.0); Mean Corpuscular Hemoglobin 28.5 pg (27.0-31.0); Mean Corpuscular Volume 88.5 fL (78.0-98.0); Mean Platelet Volume 10.6 fL (7.4-10.4); Platelet Count 156 thou/uL (130-400); RBC Distribution Width 13.9 % (11.5-14.5); Red Blood Cell (RBC) Count 4.13 mill/uL (4.20-5.40); White Blood Cell (WBC) Count 10.7 thou/uL (4.8-10.8)
[2020-04-27 07:30] LABS: ALT (SGPT) 14 U/L (8-55); AST (SGOT) 20 U/L (5-34); Albumin 3.5 g/dL (3.4-4.8); Alkaline Phosphatase 100 U/L (40-110); Anion Gap 12 mmol/L (10-20); BUN (Urea Nitrogen) 16 mg/dL (9.8-20.1); Bilirubin, Total 0.7 mg/dL (0.2-1.2); Calc. Creatinine Clearance 0 mL/min (70-130); Calcium 8.6 mg/dL (7.8-10.44); Carbon Dioxide 28 mmol/L (23-31); Chloride 106 mmol/L (98-107); Estimated GFR-MDRD 55; Globulin 3.6 g/dL (2.4-3.5); Glucose 118 mg/dL (83-110); Potassium 3.4 mmol/L (3.5-5.1); Protein, Total 7.1 g/dL (6.0-8.3); Sodium 143 mmol/L (136-145)
[2020-04-27] MEDS ORDERED: Furosemide 40 MG/4 ML VIAL ONE (07:56)
--- NOTE | 2020-04-27 08:06 | RAD ---
EXAM: Single view of the chest HISTORY: Difficulty breathing and COPD COMPARISON: 06/27/2019 FINDINGS: Single view of the chest shows an enlarged but stable cardiomediastinal silhouette. Diffus e increased interstitial markings are present. There appear to be superimposed airspace opacities extending from the hilar regions into the lower lobes. No acute osseous abnormality. IMPRESSION: 1. Multifocal infiltrates versus pulmonary edema 2. Cardiomegaly
== END 2020-04-27 09:52 | disposition home or self-care (01) ==
LOC: ERS 06:26
DX: I11.0 Hypertensive heart disease with heart failure (principal); I50.9 Heart failure, unspecified; J44.9 Chronic obstructive pulmonary disease, unspecified; K21.9 Gastro-esophageal reflux disease without esophagitis; F41.9 Anxiety disorder, unspecified
CPT/HCPCS: 71045; 80053; 83880; 84484; 85025; 93005; 96374; J1940

== ENCOUNTER 2020-06-20 10:05 | Outpatient (CLI) | payer MEDICARE, BC ==
--- NOTE | 2020-06-20 12:09 | CT ---
CT Abdomen Pelvis WO Con 06/20/2020 11:45 AM HISTORY: Abdominal distention, discomfort, and bloating. COMPARISON: 08/01/2015 Technique: Multiple contiguous axial CT images are obtained through the abdomen and pelvis without IV contrast. Coronal reformats are provided. FINDINGS: This examination is limited for the evaluation of solid organs and vascular structures due to the lac k of intravenous contrast. Lower Chest: Minimal left and trace right pleural effusions are present with bibasilar atelectasis. V ascular calcifications are seen coronary arteries and lower thoracic aorta. Liver: Subcentimeter too small to characterize hypodense lesion lateral aspect right hepatic lobe als o present in this region on prior exam. There is a stable subcapsular low-attenuation hypodense lesion posterior right hepatic lobe. There were scattered larger ill-defined areas of diminished atte nuation seen within each lobe of the liver on prior examination. These areas of low-attenuation are not appreciated on today's nonenhanced CT exam. Gallbladder: Postcholecystectomy changes. Pancreas: Grossly normal nonenhanced CT appearance. Spleen: Grossly normal nonenhanced CT appearance. Adrenals: Grossly normal nonenhanced CT appearance. Kidneys and ureters: A large hypodense exophytic cystic lesion midportion left kidney is again seen w hich is larger in size previously measuring 4.2 cm and now measures 5.6 cm and does demonstrate attenuation coefficient on this nonenhanced CT exam suggestive of a cyst. A 2.9 cm hypodense lesion i s present in the anterior aspect of the rotated midportion right kidney which is also larger in size previously measuring 2.1 cm and now measures 2.9 cm. This also demonstrates an attenuation coeff icient on this nonenhanced CT exam suggesting renal cyst. There is no hydronephrosis. No renal or ureteral calculi are seen bilaterally. Urinary bladder: Decompressed. Reproductive Organs: Uterus is small in size with multiple calcifications likely related to calcified uterine fibroids. Lymph Nodes: No enlarged lymph nodes. Bowel: Opacified bowel is normal in caliber. Contrast is seen throughout the colon extending to the r ectum. Appendix: Not visualized, there are no secondary signs to suggest appendicitis. Peritoneum: No free fluid, free air, or fluid collection. Retroperitoneum: within normal limits. Vessels: Vascular calcifications in the abdominal aorta and iliac arteries.. Abdominal Wall: Mild subcutaneous edema is seen in the adipose soft tissues anteriorly at the level o f the pubic symphysis. Bones: Multilevel degenerative changes in the lumbar spine visualized lower thoracic spine. IMPRESSION: 1. Previously seen low-attenuation areas in the liver are no longer visualized. Findings may have bee n related to infection on prior exam. 2. Stable low-attenuation cystic lesions in the right hepatic lobe. 3. Minimal left and trace right pleural effusions with adjacent minimal passive atelectasis. 4. Loops of bowel are normal in caliber without evidence of a bowel obstruction. 5. Bilateral renal cysts. 6. Postcholecystectomy changes.
[2020-06-20] MEDS ORDERED: Iopamidol 370 76% 50 ML VIAL FS ONE (14:18)
== END 2020-06-20 10:06 | disposition home or self-care (01) ==
LOC: CT 10:05
PROVIDERS: ATTEND Family Medicine
DX: R14.0 Abdominal distension (gaseous) (principal); N28.1 Cyst of kidney, acquired; J90 Pleural effusion, not elsewhere classified; J98.11 Atelectasis; K76.89 Other specified diseases of liver; Z90.49 Acquired absence of other specified parts of digestive tract
CPT/HCPCS: 74176; Q9967

== ENCOUNTER 2020-08-16 13:20 | Outpatient (CLI) | payer MEDICARE, BC | END 2020-08-16 13:21 | disposition home or self-care (01) | LOC: BICMAMMO 13:20 | DX: N63.10 Unspecified lump in the right breast, unspecified quadrant (principal) | CPT/HCPCS: 77066; G0279 ==

== ENCOUNTER 2021-02-12 09:07 | Inpatient (IN) | payer MEDICARE, BC ==
[2021-02-12 10:17] LABS: ALT (SGPT) 13 U/L (8-55); AST (SGOT) 16 U/L (5-34); Albumin 3.9 g/dL (3.4-4.8); Alkaline Phosphatase 133 U/L (40-110); Anion Gap 13 mmol/L (10-20); BUN (Urea Nitrogen) 22 mg/dL (9.8-20.1); Bilirubin, Total 0.6 mg/dL (0.2-1.2); Calc. Creatinine Clearance 0 mL/min (70-130); Calcium 9.2 mg/dL (7.8-10.44); Carbon Dioxide 31 mmol/L (23-31); Chloride 103 mmol/L (98-107); Globulin 3.6 g/dL (2.4-3.5); Glucose 95 mg/dL (83-110); Lipase 38 U/L (8-78); Potassium 3.7 mmol/L (3.5-5.1); Protein, Total 7.5 g/dL (5.8-8.1); Sodium 143 mmol/L (136-145)
[2021-02-12 10:27] LABS: #Eosinphils 0.3 thou/uL (0.0-0.7); #Monocytes 0.7 thou/uL (0.11-0.59); #Neutrophils 6.4 thou/uL (1.40-6.50); %Basophils 0.4 % (0.0-1.0); %Eosinophils 3.3 % (0.0-10.0); %Lymphocytes 21.1 % (21.0-51.0); %Monocytes 7.6 % (0.0-10.0); %Neutrophils 67.6 % (42.0-75.0); Hemoglobin 12.8 g/dL (12.0-16.0); Mean Corpuscular HGB CONC 32.2 g/dL (32.0-36.0); Mean Corpuscular Hemoglobin 28.3 pg (27.0-31.0); Mean Platelet Volume 10.8 fL (7.4-10.4); Platelet Count 167 thou/uL (130-400); Red Blood Cell (RBC) Count 4.51 mill/uL (4.20-5.40); White Blood Cell (WBC) Count 9.4 thou/uL (4.8-10.8)
[2021-02-12] MEDS ORDERED: Furosemide 40 MG/4 ML VIAL ONE (10:42)
[2021-02-12] MEDS ORDERED: Calcium Carbonate 500 MG ChewTAB PO PRN (12:10)
[2021-02-12] MEDS ORDERED: Acetaminophen 325 MG TAB PO PRN (12:10)
[2021-02-12] MEDS ORDERED: Ondansetron PF 4 MG/2 ML Vial IVP PRN (12:10)
[2021-02-12] MEDS ORDERED: Senokot S 8.6-50 MG TAB PO PRN (12:10)
[2021-02-12 13:25] LABS: SARS-CoV-2 NAA Rapid Test Not Detected (NotDetected)
[2021-02-12 13:50] VITALS: BMI 43.4
[2021-02-12] MEDS: hydrALAZINE 20 MG/ML VIAL SLOW IVP PRN ×2 (14:19→18:26)
[2021-02-12 15:20] LABS: Troponin I Less than 0.010 ng/mL (< 0.028)
[2021-02-12 17:35] LABS: Troponin I Less than 0.010 ng/mL (< 0.028)
[2021-02-12] MEDS ORDERED: Furosemide 20 MG/2 ML VIAL SLOW IVP SCH (19:00)
[2021-02-12] MEDS: hydrALAZINE 25 MG TAB PO SCH (20:42)
[2021-02-12] MEDS: Pramipexole Di-HCl 1 MG TAB PO SCH (20:43)
[2021-02-12] MEDS ORDERED: Famotidine 20 MG TAB PO SCH (21:00)
[2021-02-13 04:34] LABS: #Eosinphils 0.2 thou/uL (0.0-0.7); #Lymphocytes 1.5 thou/uL (1.20-3.40); #Monocytes 0.6 thou/uL (0.11-0.59); #Neutrophils 8.9 thou/uL (1.40-6.50); %Basophils 0.3 % (0.0-1.0); %Eosinophils 1.8 % (0.0-10.0); %Lymphocytes 13.5 % (21.0-51.0); %Monocytes 5.5 % (0.0-10.0); %Neutrophils 78.9 % (42.0-75.0); Hemoglobin 13.2 g/dL (12.0-16.0); Mean Corpuscular HGB CONC 30.7 g/dL (32.0-36.0); Mean Corpuscular Hemoglobin 27.1 pg (27.0-31.0); Mean Corpuscular Volume 88.1 fL (78.0-98.0); Mean Platelet Volume 10.5 fL (7.4-10.4); Platelet Count 164 thou/uL (130-400); RBC Distribution Width 14.8 % (11.5-14.5); Red Blood Cell (RBC) Count 4.87 mill/uL (4.20-5.40); White Blood Cell (WBC) Count 11.3 thou/uL (4.8-10.8)
[2021-02-13 05:03] LABS: ALT (SGPT) 10 U/L (8-55); AST (SGOT) 13 U/L (5-34); Albumin 3.4 g/dL (3.4-4.8); Alkaline Phosphatase 105 U/L (40-110); Anion Gap 11 mmol/L (10-20); BUN (Urea Nitrogen) 20 mg/dL (9.8-20.1); Bilirubin, Total 0.7 mg/dL (0.2-1.2); Calc. Creatinine Clearance 0 mL/min (70-130); Calcium 8.7 mg/dL (7.8-10.44); Carbon Dioxide 31 mmol/L (23-31); Chloride 104 mmol/L (98-107); Globulin 3.2 g/dL (2.4-3.5); Glucose 98 mg/dL (83-110); Potassium 3.7 mmol/L (3.5-5.1); Protein, Total 6.6 g/dL (5.8-8.1); Sodium 142 mmol/L (136-145)
[2021-02-13] MEDS: hydrALAZINE 25 MG TAB PO SCH ×3 (08:42→21:16)
[2021-02-13] MEDS: Aspirin 81 mg Enteric Coated Tablet PO SCH (08:42)
[2021-02-13] MEDS: Losartan 25 MG TAB PO SCH (08:42)
[2021-02-13] MEDS: Pramipexole Di-HCl 1 MG TAB PO SCH ×2 (08:43→21:16)
[2021-02-13] MEDS: Furosemide 40 MG/4 ML VIAL SLOW IVP SCH (08:43)
[2021-02-13] MEDS: Enoxaparin Sodium 40 MG/0.4 ML SYRINGE SC SCH (08:43)
[2021-02-13] MEDS ORDERED: Carvedilol 6.25 MG TAB PO SCH (12:00)
[2021-02-13 13:21] LABS: Bilirubin Negative (Negative); Blood, Urine Negative (Negative); Glucose, Urine (Dipstick) Negative (Negative); Ketone, Urine Negative (Negative); Leukocyte Negative (Negative); Nitrite Negative (Negative); Protein, Urine (Dipstick) Negative (Neg-Trace); Urobilinogen 0.2 mg/dL (Less than 2)
[2021-02-13 13:51] LABS: Clarity Clear (Clear)
[2021-02-13 13:52] LABS: Urine Culture Reflex No No
[2021-02-13 13:54] LABS: Bacteria/HPF None Seen HPF (None Seen); RBC/HPF None Seen HPF (0-3); Squamous Epithelial 0-3 HPF (0-3); WBC/HPF None Seen HPF (0-3)
[2021-02-13] MEDS: Carvedilol 6.25 MG TAB PO SCH (16:00)
[2021-02-13] MEDS ORDERED: Spironolactone 25 MG TAB PO SCH (16:15)
[2021-02-14] MEDS ORDERED: Melatonin 3 MG TAB PO PRN (01:15)
[2021-02-14] MEDS: Enoxaparin Sodium 40 MG/0.4 ML SYRINGE SC SCH (08:12)
[2021-02-14] MEDS: Pramipexole Di-HCl 1 MG TAB PO SCH (08:12)
[2021-02-14] MEDS: Aspirin 81 mg Enteric Coated Tablet PO SCH (08:12)
[2021-02-14] MEDS: hydrALAZINE 25 MG TAB PO SCH (08:12)
[2021-02-14] MEDS: Losartan 25 MG TAB PO SCH (08:13)
[2021-02-14] MEDS: Furosemide 40 MG/4 ML VIAL SLOW IVP SCH (08:13)
[2021-02-14] MEDS: Carvedilol 6.25 MG TAB PO SCH (08:13)
[2021-02-14 10:19] LABS: #Eosinphils 0.3 thou/uL (0.0-0.7); #Lymphocytes 1.8 thou/uL (1.20-3.40); #Monocytes 0.6 thou/uL (0.11-0.59); #Neutrophils 7.7 thou/uL (1.40-6.50); %Basophils 0.4 % (0.0-1.0); %Eosinophils 3.3 % (0.0-10.0); %Lymphocytes 17.3 % (21.0-51.0); %Neutrophils 72.9 % (42.0-75.0); Hemoglobin 13.1 g/dL (12.0-16.0); Mean Corpuscular HGB CONC 30.6 g/dL (32.0-36.0); Mean Corpuscular Hemoglobin 27.1 pg (27.0-31.0); Mean Corpuscular Volume 88.5 fL (78.0-98.0); Mean Platelet Volume 10.3 fL (7.4-10.4); Platelet Count 179 thou/uL (130-400); RBC Distribution Width 14.7 % (11.5-14.5); Red Blood Cell (RBC) Count 4.83 mill/uL (4.20-5.40); White Blood Cell (WBC) Count 10.5 thou/uL (4.8-10.8)
[2021-02-14 12:07] VITALS: BP 112/54; TEMP 97.5
== END 2021-02-14 13:30 | disposition home or self-care (01) | DRG 291 ==
LOC: ERS 09:07 → 2NO 11:26 → OBSVTOIN 02-13 16:53
PROVIDERS: ADMIT Internal Medicine; ATTEND Internal Medicine
DX: I11.0 Hypertensive heart disease with heart failure (principal); I50.31 Acute diastolic (congestive) heart failure; I25.10 Atherosclerotic heart disease of native coronary artery without angina pectoris; J44.9 Chronic obstructive pulmonary disease, unspecified; R00.1 Bradycardia, unspecified; F41.9 Anxiety disorder, unspecified; F32.9 Major depressive disorder, single episode, unspecified; I34.0 Nonrheumatic mitral (valve) insufficiency; I16.0 Hypertensive urgency; D72.829 Elevated white blood cell count, unspecified; G25.81 Restless legs syndrome; K21.9 Gastro-esophageal reflux disease without esophagitis; R09.02 Hypoxemia; Z99.81 Dependence on supplemental oxygen; Z88.1 Allergy status to other antibiotic agents; Z88.0 Allergy status to penicillin; Z88.8 Allergy status to other drugs, medicaments and biological substances; Z79.899 Other long term (current) drug therapy; Z90.49 Acquired absence of other specified parts of digestive tract; Z93.0 Tracheostomy status
CPT/HCPCS: 36415; 71045; 80053; 81001; 83690; 83880; 84443; 84484; 85025; 93005; 93798; 94760; 96372; 96374; 96375; 96376; G0378; J0360; J1650; J1940; U0002

== ENCOUNTER 2021-05-07 08:42 | Emergency (ER) | payer MEDICARE, BC ==
[2021-05-07 09:40] LABS: #Basophils 0.1 thou/uL (0.0-0.2); #Eosinphils 0.3 thou/uL (0.0-0.7); #Lymphocytes 1.9 thou/uL (1.20-3.40); #Monocytes 0.6 thou/uL (0.11-0.59); #Neutrophils 6.2 thou/uL (1.40-6.50); %Basophils 0.7 % (0.0-1.0); %Eosinophils 3.4 % (0.0-10.0); %Lymphocytes 20.9 % (21.0-51.0); %Monocytes 6.5 % (0.0-10.0); %Neutrophils 68.5 % (42.0-75.0); Hemoglobin 14.5 g/dL (12.0-16.0); Mean Corpuscular HGB CONC 36.5 g/dL (32.0-36.0); Mean Corpuscular Hemoglobin 32.8 pg (27.0-31.0); Mean Corpuscular Volume 90.1 fL (78.0-98.0); Mean Platelet Volume 9.7 fL (7.4-10.4); Platelet Count 159 thou/uL (130-400); RBC Distribution Width 14.3 % (11.5-14.5); Red Blood Cell (RBC) Count 4.42 mill/uL (4.20-5.40); White Blood Cell (WBC) Count 9.1 thou/uL (4.8-10.8)
[2021-05-07 09:56] LABS: ALT (SGPT) 13 U/L (8-55); AST (SGOT) 16 U/L (5-34); Albumin 3.6 g/dL (3.4-4.8); Alkaline Phosphatase 114 U/L (40-110); Anion Gap 11 mmol/L (10-20); BUN (Urea Nitrogen) 23 mg/dL (9.8-20.1); Bilirubin, Total 0.5 mg/dL (0.2-1.2); Calc. Creatinine Clearance 0 mL/min (70-130); Calcium 9.3 mg/dL (7.8-10.44); Carbon Dioxide 32 mmol/L (23-31); Chloride 104 mmol/L (98-107); Globulin 3.8 g/dL (2.4-3.5); Glucose 98 mg/dL (83-110); Lipase 37 U/L (8-78); Potassium 4.1 mmol/L (3.5-5.1); Protein, Total 7.4 g/dL (5.8-8.1); Sodium 143 mmol/L (136-145)
[2021-05-07] MEDS ORDERED: Furosemide 20 MG/2 ML VIAL ONE (10:26)
[2021-05-07] MEDS ORDERED: Nitroglycerin 0.4 MG TAB 1 EACH ONE (10:26)
[2021-05-07] MEDS ORDERED: Acetaminophen 500 MG TAB ONE (11:08)
== END 2021-05-07 11:30 | disposition home or self-care (01) ==
LOC: ERS 08:42
DX: R07.89 Other chest pain (principal); R05.9 Cough, unspecified; R51.9 Headache, unspecified; I11.0 Hypertensive heart disease with heart failure; I50.9 Heart failure, unspecified; K21.9 Gastro-esophageal reflux disease without esophagitis; J44.9 Chronic obstructive pulmonary disease, unspecified; G25.81 Restless legs syndrome; Z79.82 Long term (current) use of aspirin
CPT/HCPCS: 36415; 71045; 80053; 83690; 83880; 84484; 85025; 93005; 96374; J1940

== ENCOUNTER 2021-09-24 10:25 | Outpatient (CLI) | payer MEDICARE, BC | END 2021-09-24 10:26 | disposition home or self-care (01) | LOC: RAD 10:25 | PROVIDERS: ATTEND Family Medicine | DX: R05.9 Cough, unspecified (principal) | CPT/HCPCS: 71046 ==

== ENCOUNTER 2022-01-06 07:26 | Emergency (ER) | payer MEDICARE, BC ==
[2022-01-06 08:34] LABS: ALT (SGPT) 12 U/L (8-55); AST (SGOT) 21 U/L (5-34); Albumin 3.9 g/dL (3.4-4.8); Alkaline Phosphatase 127 U/L (40-110); Anion Gap 17 mmol/L (10-20); BUN (Urea Nitrogen) 41 mg/dL (9.8-20.1); Bilirubin, Total 0.6 mg/dL (0.2-1.2); Calc. Creatinine Clearance 0 mL/min (70-130); Calcium 9.1 mg/dL (7.8-10.44); Carbon Dioxide 25 mmol/L (23-31); Chloride 103 mmol/L (98-107); Estimated GFR 45; Globulin 3.6 g/dL (2.4-3.5); Glucose 102 mg/dL (83-110); Potassium 4.9 mmol/L (3.5-5.1); Protein, Total 7.5 g/dL (5.8-8.1); Sodium 140 mmol/L (136-145)
[2022-01-06 08:39] LABS: SARS-CoV-2 NAA Rapid Test Not Detected (NotDetected)
[2022-01-06 08:49] LABS: Hemoglobin 11.1 g/dL (12.0-16.0); Mean Corpuscular HGB CONC 28.2 g/dL (32.0-36.0); Mean Corpuscular Hemoglobin 25.8 pg (27.0-31.0); Mean Corpuscular Volume 91.4 fL (78.0-98.0); Mean Platelet Volume 11.1 fL (7.4-10.4); Platelet Count 135 thou/uL (130-400); RBC Distribution Width 14.1 % (11.5-14.5); Red Blood Cell (RBC) Count 4.32 mill/uL (4.20-5.40); White Blood Cell (WBC) Count 9.4 thou/uL (4.8-10.8)
[2022-01-06 09:35] LABS: Band 3 % (5-11); Hypochromia SLIGHT = 6-15 cells (100X) (0-5/hpf); Lymphocytes 20 % (21-51); MDiff Complete? YES; Monocytes 4 % (0-10); Neutrophil 73 % (42-75); Platelet Morphology Comment Appears Adequate; Polychromasia SLIGHT = 2-3 cells (100X) (0-2/hpf)
== END 2022-01-06 09:18 | disposition home or self-care (01) ==
LOC: ERS 07:26
DX: I11.0 Hypertensive heart disease with heart failure (principal); I50.9 Heart failure, unspecified; Z20.822 Contact with and (suspected) exposure to COVID-19; K21.9 Gastro-esophageal reflux disease without esophagitis; J44.9 Chronic obstructive pulmonary disease, unspecified; Z79.899 Other long term (current) drug therapy; Z79.82 Long term (current) use of aspirin
CPT/HCPCS: 71045; 80053; 83880; 84484; 85025; 93005; 99285; U0002; 36415

== ENCOUNTER 2022-07-08 13:22 | Observation (INO) | payer MEDICARE, BC ==
[2022-07-08 14:34] LABS: #Eosinphils 0.1 thou/uL (0.0-0.7); #Lymphocytes 0.5 thou/uL (1.20-3.40); #Monocytes 0.8 thou/uL (0.11-0.59); #Neutrophils 6.3 thou/uL (1.40-6.50); %Basophils 0.2 % (0.0-1.0); %Eosinophils 1.1 % (0.0-10.0); %Lymphocytes 6.8 % (21.0-51.0); %Monocytes 9.9 % (0.0-10.0); %Neutrophils 82.1 % (42.0-75.0); Hemoglobin 12.4 g/dL (12.0-16.0); Mean Corpuscular HGB CONC 31.7 g/dL (32.0-36.0); Mean Corpuscular Hemoglobin 27.9 pg (27.0-31.0); Mean Corpuscular Volume 88.2 fl (78.0-98.0); Mean Platelet Volume 10.5 fL (7.4-10.4); Platelet Count 152 10x3/uL (130-400); RBC Distribution Width 13.9 % (11.5-14.5); Red Blood Cell (RBC) Count 4.44 mill/uL (4.20-5.40); White Blood Cell (WBC) Count 7.7 10x3/uL (4.8-10.8)
[2022-07-08 15:13] LABS: ALT (SGPT) 16 U/L (8-55); AST (SGOT) 28 U/L (5-34); Albumin 3.6 g/dL (3.4-4.8); Alkaline Phosphatase 117 U/L (40-110); Anion Gap 14 mmol/L (10-20); BUN (Urea Nitrogen) 20 mg/dL (9.8-20.1); Bilirubin, Total 0.3 mg/dL (0.2-1.2); Calc. Creatinine Clearance 0 mL/min (70-130); Calcium 8.6 mg/dL (7.8-10.44); Carbon Dioxide 25 mmol/L (23-31); Chloride 103 mmol/L (98-107); Estimated GFR 64; Globulin 4.3 g/dL (2.4-3.5); Glucose 89 mg/dL (83-110); Potassium 4.6 mmol/L (3.5-5.1); Protein, Total 7.9 g/dL (5.8-8.1); Sodium 137 mmol/L (136-145)
[2022-07-08] MEDS ORDERED: Dexamethasone 10 MG/ML VIAL ONE (17:08)
[2022-07-08 19:50] VITALS: BMI 48.1
[2022-07-08] MEDS ORDERED: Pramipexole Di-HCl 1 MG TAB PO SCH (21:00)
[2022-07-08] MEDS: Carvedilol 6.25 MG TAB PO SCH (21:02)
[2022-07-08] MEDS: hydrALAZINE 25 MG TAB PO SCH (21:02)
[2022-07-08] MEDS: Torsemide 20 MG TAB PO SCH (21:03)
[2022-07-09 06:35] VITALS: TEMP 97.7
[2022-07-09 07:59] LABS: #Lymphocytes 0.5 thou/uL (1.20-3.40); #Monocytes 0.2 thou/uL (0.11-0.59); #Neutrophils 2.7 thou/uL (1.40-6.50); %Basophils 0.7 % (0.0-1.0); %Eosinophils 0.2 % (0.0-10.0); %Lymphocytes 13.8 % (21.0-51.0); %Monocytes 7.2 % (0.0-10.0); %Neutrophils 78.1 % (42.0-75.0); Hemoglobin 11.4 g/dL (12.0-16.0); Mean Corpuscular HGB CONC 31.6 g/dL (32.0-36.0); Mean Corpuscular Hemoglobin 28.3 pg (27.0-31.0); Mean Corpuscular Volume 89.5 fl (78.0-98.0); Mean Platelet Volume 10.5 fL (7.4-10.4); Platelet Count 145 10x3/uL (130-400); RBC Distribution Width 13.7 % (11.5-14.5); Red Blood Cell (RBC) Count 4.04 mill/uL (4.20-5.40); White Blood Cell (WBC) Count 3.4 10x3/uL (4.8-10.8)
[2022-07-09 08:35] LABS: ALT (SGPT) 12 U/L (8-55); AST (SGOT) 16 U/L (5-34); Albumin 3.1 g/dL (3.4-4.8); Alkaline Phosphatase 93 U/L (40-110); Anion Gap 11 mmol/L (10-20); BUN (Urea Nitrogen) 24 mg/dL (9.8-20.1); Bilirubin, Total 0.2 mg/dL (0.2-1.2); Calc. Creatinine Clearance 99 mL/min (70-130); Calcium 8.6 mg/dL (7.8-10.44); Carbon Dioxide 26 mmol/L (23-31); Chloride 106 mmol/L (98-107); Estimated GFR 67; Globulin 3.7 g/dL (2.4-3.5); Glucose 167 mg/dL (83-110); Protein, Total 6.8 g/dL (5.8-8.1); Sodium 139 mmol/L (136-145)
[2022-07-09] MEDS ORDERED: Aspirin 81 mg Enteric Coated Tablet PO SCH (09:00)
[2022-07-09] MEDS ORDERED: Spironolactone 25 MG TAB PO SCH (09:00)
[2022-07-09] MEDS ORDERED: Sertraline 100 MG TAB PO SCH (09:00)
[2022-07-09] MEDS: Carvedilol 6.25 MG TAB PO SCH (09:52)
[2022-07-09] MEDS: Torsemide 20 MG TAB PO SCH (09:52)
[2022-07-09] MEDS: hydrALAZINE 25 MG TAB PO SCH ×2 (09:52→15:19)
[2022-07-09 17:04] VITALS: BP 145/62
== END 2022-07-09 17:02 | disposition home or self-care (01) ==
LOC: ERS 13:22 → T4-B 18:45
PROVIDERS: ADMIT Family Medicine; ATTEND Family Medicine
DX: U07.1 COVID-19 (principal); J12.82 Pneumonia due to coronavirus disease 2019; J96.01 Acute respiratory failure with hypoxia; I11.0 Hypertensive heart disease with heart failure; I50.33 Acute on chronic diastolic (congestive) heart failure; G25.81 Restless legs syndrome; K21.9 Gastro-esophageal reflux disease without esophagitis; J44.9 Chronic obstructive pulmonary disease, unspecified; E66.01 Morbid (severe) obesity due to excess calories; Z68.42 Body mass index [BMI] 45.0-49.9, adult; Z51.5 Encounter for palliative care; Z79.82 Long term (current) use of aspirin; Z79.899 Other long term (current) drug therapy; Z88.0 Allergy status to penicillin; Z88.7 Allergy status to serum and vaccine; Z99.81 Dependence on supplemental oxygen
CPT/HCPCS: 36415; 71045; 80053; 83605; 83880; 84484; 85025; 86480; 87040; 93005; 94760; 96372; 96374; G0378; J1100; J1650

== ENCOUNTER 2022-08-27 01:37 | Inpatient (IN) | payer MEDICARE, BC ==
[2022-08-27] MEDS ORDERED: Ipratropium/Albuterol 3 ML NEB ONE (01:54)
[2022-08-27 02:02] LABS: #Eosinphils 0.2 thou/uL (0.0-0.7); #Lymphocytes 1.5 thou/uL (1.20-3.40); #Neutrophils 10.5 thou/uL (1.40-6.50); %Basophils 0.2 % (0.0-1.0); %Eosinophils 1.5 % (0.0-10.0); %Lymphocytes 11.3 % (21.0-51.0); %Monocytes 7.5 % (0.0-10.0); %Neutrophils 79.6 % (42.0-75.0); Hemoglobin 11.6 g/dL (12.0-16.0); Mean Corpuscular HGB CONC 31.4 g/dL (32.0-36.0); Mean Corpuscular Hemoglobin 27.8 pg (27.0-31.0); Mean Corpuscular Volume 88.5 fl (78.0-98.0); Mean Platelet Volume 10.8 fL (7.4-10.4); Platelet Count 151 10x3/uL (130-400); RBC Distribution Width 14.7 % (11.5-14.5); Red Blood Cell (RBC) Count 4.18 mill/uL (4.20-5.40); White Blood Cell (WBC) Count 13.2 10x3/uL (4.8-10.8)
[2022-08-27 02:24] LABS: ALT (SGPT) 14 U/L (8-55); AST (SGOT) 22 U/L (5-34); Albumin 3.6 g/dL (3.4-4.8); Alkaline Phosphatase 106 U/L (40-110); Anion Gap 11 mmol/L (10-20); BUN (Urea Nitrogen) 22 mg/dL (9.8-20.1); Bilirubin, Total 0.9 mg/dL (0.2-1.2); Calc. Creatinine Clearance 0 mL/min (70-130); Calcium 9.3 mg/dL (7.8-10.44); Carbon Dioxide 32 mmol/L (23-31); Chloride 104 mmol/L (98-107); Estimated GFR 65; Globulin 4.4 g/dL (2.4-3.5); Glucose 127 mg/dL (83-110); Magnesium 2.2 mg/dL (1.6-2.6); Potassium 4.3 mmol/L (3.5-5.1); Sodium 143 mmol/L (136-145)
[2022-08-27] MEDS ORDERED: Furosemide 40 MG/4 ML VIAL ONE (03:14)
[2022-08-27 08:50] VITALS: BMI 54.8
[2022-08-27] MEDS ORDERED: Iopamidol-370 76% 500 ML MDV (1 ML CHARGE) ONE (09:11)
[2022-08-27] MEDS ORDERED: Aspirin Chewable 81 MG TAB ONE (09:48)
[2022-08-27] MEDS ORDERED: hydrALAZINE 25 MG TAB ONE (09:50)
[2022-08-27] MEDS ORDERED: Azithromycin 500 MG in Sodium Chloride 0.9% 250 ML 250 ML IVPB SCH (10:00)
[2022-08-27] MEDS: Carvedilol 6.25 MG TAB PO SCH ×2 (10:05→20:53)
[2022-08-27] MEDS: hydrALAZINE 25 MG TAB PO SCH ×3 (10:05→20:51)
[2022-08-27] MEDS: Heparin 5,000 UNITS/ML VIAL SC SCH ×3 (10:05→20:54)
[2022-08-27] MEDS: Aspirin Chewable 81 MG TAB PO SCH (10:05)
[2022-08-27] MEDS: Sertraline 100 MG TAB PO SCH (10:06)
[2022-08-27] MEDS ORDERED: Azithromycin 500 MG VIAL ONE (10:09)
[2022-08-27 10:14] LABS: CKMB 0.7 ng/mL (0-6.6)
[2022-08-27] MEDS: Furosemide 40 MG/4 ML VIAL SLOW IVP SCH (16:15)
[2022-08-27] MEDS ORDERED: Pramipexole Di-HCl 1 MG TAB PO SCH (21:00)
[2022-08-28] MEDS: Acetaminophen 325 MG TAB PO PRN ×2 (03:44→23:40)
[2022-08-28 04:57] LABS: #Eosinphils 0.1 thou/uL (0.0-0.7); #Lymphocytes 1.2 thou/uL (1.20-3.40); #Monocytes 1.2 thou/uL (0.11-0.59); #Neutrophils 9.1 thou/uL (1.40-6.50); %Basophils 0.2 % (0.0-1.0); %Eosinophils 1.1 % (0.0-10.0); %Lymphocytes 10.4 % (21.0-51.0); %Monocytes 10.2 % (0.0-10.0); Mean Corpuscular HGB CONC 32.4 g/dL (32.0-36.0); Mean Corpuscular Hemoglobin 28.4 pg (27.0-31.0); Mean Corpuscular Volume 87.6 fl (78.0-98.0); Platelet Count 133 10x3/uL (130-400); RBC Distribution Width 14.8 % (11.5-14.5); Red Blood Cell (RBC) Count 3.52 mill/uL (4.20-5.40); White Blood Cell (WBC) Count 11.7 10x3/uL (4.8-10.8)
[2022-08-28 05:21] LABS: ALT (SGPT) 12 U/L (8-55); AST (SGOT) 13 U/L (5-34); Alkaline Phosphatase 73 U/L (40-110); Anion Gap 12 mmol/L (10-20); BUN (Urea Nitrogen) 19 mg/dL (9.8-20.1); Bilirubin, Total 1.1 mg/dL (0.2-1.2); Calc. Creatinine Clearance 124 mL/min (70-130); Calcium 8.6 mg/dL (7.8-10.44); Carbon Dioxide 29 mmol/L (23-31); Chloride 102 mmol/L (98-107); Estimated GFR 76; Globulin 3.5 g/dL (2.4-3.5); Glucose 98 mg/dL (83-110); Potassium 3.6 mmol/L (3.5-5.1); Protein, Total 6.5 g/dL (5.8-8.1); Sodium 139 mmol/L (136-145)
[2022-08-28] MEDS: Furosemide 40 MG/4 ML VIAL SLOW IVP SCH ×2 (06:38→14:24)
[2022-08-28] MEDS: Aspirin Chewable 81 MG TAB PO SCH (09:29)
[2022-08-28] MEDS: hydrALAZINE 25 MG TAB PO SCH ×3 (09:29→20:36)
[2022-08-28] MEDS: Carvedilol 6.25 MG TAB PO SCH ×2 (09:30→20:36)
[2022-08-28] MEDS: Sertraline 100 MG TAB PO SCH (09:30)
[2022-08-28] MEDS: Heparin 5,000 UNITS/ML VIAL SC SCH ×3 (09:31→20:36)
[2022-08-28] MEDS: diphenhydrAMINE 25 MG CAP PO PRN (20:36)
[2022-08-29] MEDS ORDERED: Pramipexole Di-HCl 0.25 MG TAB PO SCH (00:30)
[2022-08-29] MEDS: Furosemide 40 MG/4 ML VIAL SLOW IVP SCH ×2 (06:08→12:49)
[2022-08-29 06:52] LABS: Bacteria/HPF 2+ HPF (None Seen); Bilirubin Negative (Negative); Blood, Urine Negative (Negative); Clarity Clear (Clear); Glucose, Urine (Dipstick) Normal (Negative); Ketone, Urine Negative (Negative); Leukocyte Negative Leu/uL (Negative); Nitrite Negative (Negative); Protein, Urine (Dipstick) 30 mg/dL (Neg-Trace); RBC/HPF 0-3 HPF (0-3); Specific Gravity, Urine 1.015 (1.002-1.036); Squamous Epithelial None Seen HPF (0-3); Urobilinogen Normal mg/dL (Less than 2); WBC/HPF 0-3 HPF (0-3); pH, Urine 8.5 (5.0-9.0)
[2022-08-29] MEDS: Carvedilol 6.25 MG TAB PO SCH ×2 (09:13→20:13)
[2022-08-29] MEDS: Sertraline 100 MG TAB PO SCH (09:13)
[2022-08-29] MEDS: hydrALAZINE 25 MG TAB PO SCH ×3 (09:13→20:13)
[2022-08-29] MEDS: Aspirin Chewable 81 MG TAB PO SCH (09:13)
[2022-08-29] MEDS: Heparin 5,000 UNITS/ML VIAL SC SCH ×3 (09:13→20:13)
[2022-08-29 09:16] LABS: #Eosinphils 0.2 thou/uL (0.0-0.7); #Lymphocytes 1.1 thou/uL (1.20-3.40); #Monocytes 1.1 thou/uL (0.11-0.59); #Neutrophils 9.8 thou/uL (1.40-6.50); %Basophils 0.4 % (0.0-1.0); %Eosinophils 1.5 % (0.0-10.0); %Lymphocytes 9.1 % (21.0-51.0); %Monocytes 8.8 % (0.0-10.0); %Neutrophils 80.3 % (42.0-75.0); Hemoglobin 10.7 g/dL (12.0-16.0); Mean Corpuscular HGB CONC 30.4 g/dL (32.0-36.0); Mean Corpuscular Hemoglobin 27.4 pg (27.0-31.0); Mean Platelet Volume 10.8 fL (7.4-10.4); Platelet Count 140 10x3/uL (130-400); RBC Distribution Width 14.7 % (11.5-14.5); Red Blood Cell (RBC) Count 3.92 mill/uL (4.20-5.40); White Blood Cell (WBC) Count 12.2 10x3/uL (4.8-10.8)
[2022-08-29 09:42] LABS: Anion Gap 12 mmol/L (10-20); BUN (Urea Nitrogen) 21 mg/dL (9.8-20.1); Calc. Creatinine Clearance 102 mL/min (70-130); Carbon Dioxide 31 mmol/L (23-31); Chloride 101 mmol/L (98-107); Estimated GFR 74; Glucose 117 mg/dL (83-110); Potassium 3.4 mmol/L (3.5-5.1); Sodium 141 mmol/L (136-145)
[2022-08-29] MEDS: methylPREDNISolone Sod Succ 40 MG VIAL IVP SCH ×2 (12:49→20:13)
[2022-08-29] MEDS: Pramipexole Di-HCl 0.25 MG TAB PO SCH (20:13)
[2022-08-29] MEDS: diphenhydrAMINE 25 MG CAP PO PRN (22:15)
[2022-08-30] MEDS: Furosemide 40 MG/4 ML VIAL SLOW IVP SCH ×2 (05:25→13:55)
[2022-08-30] MEDS: methylPREDNISolone Sod Succ 40 MG VIAL IVP SCH ×3 (05:25→21:15)
[2022-08-30 05:36] LABS: Anion Gap 13 mmol/L (10-20); BUN (Urea Nitrogen) 29 mg/dL (9.8-20.1); Calc. Creatinine Clearance 101 mL/min (70-130); Calcium 9.2 mg/dL (7.8-10.44); Carbon Dioxide 30 mmol/L (23-31); Chloride 101 mmol/L (98-107); Estimated GFR 73; Glucose 192 mg/dL (83-110); Potassium 3.7 mmol/L (3.5-5.1); Sodium 140 mmol/L (136-145)
[2022-08-30] MEDS: Aspirin Chewable 81 MG TAB PO SCH (09:34)
[2022-08-30] MEDS: Heparin 5,000 UNITS/ML VIAL SC SCH ×3 (09:34→21:16)
[2022-08-30] MEDS: Carvedilol 6.25 MG TAB PO SCH ×2 (09:34→21:18)
[2022-08-30] MEDS: Sertraline 100 MG TAB PO SCH (09:34)
[2022-08-30] MEDS: hydrALAZINE 25 MG TAB PO SCH ×3 (09:34→21:16)
[2022-08-30] MEDS: Albuterol 200 PUFF (6.7GM INHALER) INH SCH ×2 (14:41→19:42)
[2022-08-30] MEDS: Pramipexole Di-HCl 0.25 MG TAB PO SCH (21:18)
[2022-08-30] MEDS: guaiFENesin/DM ER PO SCH (21:18)
[2022-08-30] MEDS: diphenhydrAMINE 25 MG CAP PO PRN (23:15)
[2022-08-31] MEDS: methylPREDNISolone Sod Succ 40 MG VIAL IVP SCH (05:26)
[2022-08-31] MEDS: Furosemide 40 MG/4 ML VIAL SLOW IVP SCH (05:26)
[2022-08-31] MEDS ORDERED: Furosemide 40 MG TAB PO SCH (07:30)
[2022-08-31] MEDS: Albuterol 200 PUFF (6.7GM INHALER) INH SCH ×3 (07:35→19:30)
[2022-08-31] MEDS: Carvedilol 6.25 MG TAB PO SCH ×2 (08:54→21:59)
[2022-08-31] MEDS: Sertraline 100 MG TAB PO SCH (08:54)
[2022-08-31] MEDS: predniSONE 20 MG TAB PO SCH (08:54)
[2022-08-31] MEDS: hydrALAZINE 25 MG TAB PO SCH ×3 (08:54→21:58)
[2022-08-31] MEDS: Heparin 5,000 UNITS/ML VIAL SC SCH ×3 (08:55→22:01)
[2022-08-31] MEDS: guaiFENesin/DM ER PO SCH ×2 (08:55→21:59)
[2022-08-31] MEDS: Aspirin Chewable 81 MG TAB PO SCH (08:55)
[2022-08-31] MEDS: diphenhydrAMINE 25 MG CAP PO PRN (21:58)
[2022-08-31] MEDS: Pramipexole Di-HCl 0.25 MG TAB PO SCH (22:35)
[2022-09-01] MEDS: Albuterol 200 PUFF (6.7GM INHALER) INH SCH (07:10)
[2022-09-01] MEDS ORDERED: Furosemide 40 MG TAB PO SCH (07:30)
[2022-09-01 08:12] VITALS: BP 153/67; TEMP 97.6
[2022-09-01] MEDS: hydrALAZINE 25 MG TAB PO SCH (09:15)
[2022-09-01] MEDS: Sertraline 100 MG TAB PO SCH (09:15)
[2022-09-01] MEDS: Carvedilol 6.25 MG TAB PO SCH (09:15)
[2022-09-01] MEDS: predniSONE 20 MG TAB PO SCH (09:16)
[2022-09-01] MEDS: Aspirin Chewable 81 MG TAB PO SCH (09:16)
[2022-09-01] MEDS: guaiFENesin/DM ER PO SCH (09:17)
[2022-09-01] MEDS: Heparin 5,000 UNITS/ML VIAL SC SCH (09:17)
== END 2022-09-01 11:20 | disposition home or self-care (01) | DRG 291 ==
LOC: ERS 01:37 → ERHOLD 04:50 → 2NO 15:01
PROVIDERS: ADMIT Internal Medicine; ATTEND Internal Medicine
DX: I11.0 Hypertensive heart disease with heart failure (principal); I50.33 Acute on chronic diastolic (congestive) heart failure; J96.21 Acute and chronic respiratory failure with hypoxia; Z68.42 Body mass index [BMI] 45.0-49.9, adult; J84.10 Pulmonary fibrosis, unspecified; G25.81 Restless legs syndrome; E66.01 Morbid (severe) obesity due to excess calories; F41.9 Anxiety disorder, unspecified; U09.9 Post COVID-19 condition, unspecified; K21.9 Gastro-esophageal reflux disease without esophagitis; Z90.49 Acquired absence of other specified parts of digestive tract; Z98.890 Other specified postprocedural states; Z88.1 Allergy status to other antibiotic agents; Z88.0 Allergy status to penicillin; Z88.8 Allergy status to other drugs, medicaments and biological substances; Z99.81 Dependence on supplemental oxygen; Z79.82 Long term (current) use of aspirin; Z79.899 Other long term (current) drug therapy
CPT/HCPCS: 36415; 71045; 71275; 80048; 80053; 81001; 82553; 83735; 83880; 84484; 85025; 87040; 93005; 93306; 94640; 96374; J0456; J1644; J1940; J1956; J2920; J7050; J7512; J7611; J7620; Q9967

== ENCOUNTER 2022-10-07 07:47 | Inpatient (IN) | payer MEDICARE, BC ==
[2022-10-07 08:25] LABS: #Eosinphils 0.2 thou/uL (0.0-0.7); #Monocytes 0.6 thou/uL (0.11-0.59); #Neutrophils 8.8 thou/uL (1.40-6.50); %Basophils 0.4 % (0.0-1.0); %Eosinophils 1.6 % (0.0-10.0); %Monocytes 5.5 % (0.0-10.0); Hemoglobin 9.8 g/dL (12.0-16.0); Mean Corpuscular HGB CONC 29.3 g/dL (32.0-36.0); Mean Corpuscular Hemoglobin 26.6 pg (27.0-31.0); Mean Corpuscular Volume 90.8 fl (78.0-98.0); Platelet Count 231 10x3/uL (130-400); RBC Distribution Width 17.1 % (11.5-14.5); Red Blood Cell (RBC) Count 3.68 mill/uL (4.20-5.40); White Blood Cell (WBC) Count 11.1 10x3/uL (4.8-10.8)
[2022-10-07] MEDS ORDERED: Furosemide 40 MG/4 ML VIAL ONE (08:38)
[2022-10-07] MEDS ORDERED: Nitroglycerin 2% Ointment 1 INCH/1 GM Packet ONE (08:38)
[2022-10-07 08:48] LABS: ALT (SGPT) 12 U/L (8-55); AST (SGOT) 17 U/L (5-34); Albumin 3.5 g/dL (3.4-4.8); Alkaline Phosphatase 89 U/L (40-110); Anion Gap 14 mmol/L (10-20); BUN (Urea Nitrogen) 18 mg/dL (9.8-20.1); Bilirubin, Total 0.6 mg/dL (0.2-1.2); Calc. Creatinine Clearance 0 mL/min (70-130); Calcium 9.2 mg/dL (7.8-10.44); Carbon Dioxide 31 mmol/L (23-31); Chloride 102 mmol/L (98-107); Estimated GFR 74; Glucose 99 mg/dL (83-110); Lipase 23 U/L (8-78); Protein, Total 7.5 g/dL (5.8-8.1); Sodium 143 mmol/L (136-145)
[2022-10-07 09:06] LABS: Bacteria/HPF None Seen HPF (None Seen); Bilirubin Negative (Negative); Blood, Urine Negative (Negative); Clarity Hazy (Clear); Glucose, Urine (Dipstick) Normal (Negative); Ketone, Urine Negative (Negative); Leukocyte Negative Leu/uL (Negative); Nitrite Negative (Negative); Protein, Urine (Dipstick) 30 mg/dL (Neg-Trace); RBC/HPF 0-3 HPF (0-3); Specific Gravity, Urine 1.024 (1.002-1.036); Squamous Epithelial 0-3 HPF (0-3); Urobilinogen Normal mg/dL (Less than 2); WBC/HPF 0-3 HPF (0-3); pH, Urine 5.5 (5.0-9.0)
[2022-10-07 09:35] LABS: Hypochromia SLIGHT = 6-15 cells HPF (0-5); Platelet Morphology Comment Platelets Normal; Polychromasia SLIGHT = 2-3 cells HPF (0-2); RBC Morphology Within Normal Limits; Stomatocytes SLIGHT = 2-5 cells HPF (0-1); Target Cells SLIGHT = 2-5 cells HPF (0-1)
[2022-10-07] MEDS ORDERED: Senokot S 8.6-50 MG TAB PO PRN (09:38)
[2022-10-07] MEDS ORDERED: Ondansetron ODT 4 MG TAB PO PRN (09:38)
[2022-10-07] MEDS ORDERED: Calcium Carbonate 500 MG ChewTAB PO PRN (09:38)
[2022-10-07] MEDS ORDERED: Ondansetron PF 4 MG/2 ML Vial IVP PRN (09:38)
[2022-10-07 11:58] VITALS: BMI 261.2
[2022-10-07] MEDS ORDERED: rOPINIRole HCl 1 MG TAB PO SCH (12:45)
[2022-10-07] MEDS: Furosemide 100 MG/10 ML VIAL SLOW IVP SCH (13:08)
[2022-10-07] MEDS: hydrALAZINE 25 MG TAB PO SCH ×2 (14:23→20:54)
[2022-10-07] MEDS ORDERED: hydrALAZINE 25 MG TAB PO SCH (15:00)
[2022-10-07] MEDS ORDERED: Non-Formulary Item 1 EACH (Hydralazine Hcl [Hydralazine Hcl] 50 MG Tablet) PO SCH (15:00)
[2022-10-07] MEDS: Simethicone Chewable 80 MG TAB PO SCH ×2 (20:54)
[2022-10-07] MEDS ORDERED: Sacubitril 49 MG/Valsartan 51 MG TABLET PO SCH (21:00)
[2022-10-07] MEDS ORDERED: Non-Formulary Item 1 EACH (Sacubitril/Valsartan [Entresto 97 Mg-103 Mg Tablet] 1 EACH Tab PO SCH (21:00)
[2022-10-07] MEDS ORDERED: Carvedilol 6.25 MG TAB PO SCH (21:00)
[2022-10-08 05:15] LABS: #Basophils 0.1 thou/uL (0.0-0.2); #Eosinphils 0.2 thou/uL (0.0-0.7); #Monocytes 0.8 thou/uL (0.11-0.59); #Neutrophils 10.7 thou/uL (1.40-6.50); %Basophils 0.5 % (0.0-1.0); %Eosinophils 1.2 % (0.0-10.0); %Lymphocytes 9.5 % (21.0-51.0); %Monocytes 6.4 % (0.0-10.0); %Neutrophils 81.9 % (42.0-75.0); Hemoglobin 9.9 g/dL (12.0-16.0); Mean Corpuscular HGB CONC 29.7 g/dL (32.0-36.0); Mean Corpuscular Hemoglobin 26.5 pg (27.0-31.0); Mean Platelet Volume 12.6 fL (7.4-10.4); Platelet Count 232 10x3/uL (130-400); RBC Distribution Width 16.8 % (11.5-14.5); Red Blood Cell (RBC) Count 3.74 mill/uL (4.20-5.40)
[2022-10-08 05:41] LABS: ALT (SGPT) 12 U/L (8-55); AST (SGOT) 15 U/L (5-34); Albumin 3.1 g/dL (3.4-4.8); Alkaline Phosphatase 76 U/L (40-110); Anion Gap 11 mmol/L (10-20); BUN (Urea Nitrogen) 15 mg/dL (9.8-20.1); Bilirubin, Total 0.8 mg/dL (0.2-1.2); Calc. Creatinine Clearance 105 mL/min (70-130); Calcium 8.9 mg/dL (7.8-10.44); Carbon Dioxide 35 mmol/L (23-31); Chloride 98 mmol/L (98-107); Estimated GFR 80; Globulin 3.7 g/dL (2.4-3.5); Glucose 106 mg/dL (83-110); Magnesium 2.1 mg/dL (1.6-2.6); Potassium 3.2 mmol/L (3.5-5.1); Protein, Total 6.8 g/dL (5.8-8.1); Sodium 141 mmol/L (136-145)
[2022-10-08] MEDS: Furosemide 100 MG/10 ML VIAL SLOW IVP SCH (06:13)
[2022-10-08] MEDS ORDERED: Spironolactone 25 MG TAB PO SCH (09:00)
[2022-10-08] MEDS ORDERED: Sertraline 100 MG TAB PO SCH (09:00)
[2022-10-08] MEDS: Acetaminophen 325 MG TAB PO PRN (09:47)
[2022-10-08] MEDS: Empagliflozin 10 MG TAB PO SCH (09:48)
[2022-10-08] MEDS: hydrALAZINE 25 MG TAB PO SCH ×3 (09:49→20:31)
[2022-10-08] MEDS: Simethicone Chewable 80 MG TAB PO SCH ×4 (09:50→22:06)
[2022-10-08] MEDS: Pramipexole Di-HCl 1 MG TAB PO SCH (09:50)
[2022-10-08] MEDS: Sertraline 100 MG TAB PO SCH (09:50)
[2022-10-08] MEDS: Aspirin 81 mg Enteric Coated Tablet PO SCH (09:50)
[2022-10-08] MEDS: Potassium Chloride 20 MEQ TAB PO SCH ×2 (09:56→14:36)
[2022-10-08] MEDS: Furosemide 40 MG/4 ML VIAL SLOW IVP SCH (14:36)
[2022-10-08] MEDS: Carvedilol 3.125 MG TAB PO SCH (17:52)
[2022-10-08] MEDS: Baclofen 10 MG TAB PO PRN (20:31)
[2022-10-09 04:19] LABS: #Basophils 0.1 thou/uL (0.0-0.2); #Eosinphils 0.2 thou/uL (0.0-0.7); #Monocytes 0.6 thou/uL (0.11-0.59); #Neutrophils 5.8 thou/uL (1.40-6.50); %Basophils 0.6 % (0.0-1.0); %Eosinophils 2.8 % (0.0-10.0); %Lymphocytes 18.1 % (21.0-51.0); %Monocytes 7.4 % (0.0-10.0); %Neutrophils 70.6 % (42.0-75.0); Mean Corpuscular HGB CONC 28.7 g/dL (32.0-36.0); Mean Corpuscular Volume 90.6 fl (78.0-98.0); Mean Platelet Volume 12.7 fL (7.4-10.4); RBC Distribution Width 16.9 % (11.5-14.5); Red Blood Cell (RBC) Count 3.85 mill/uL (4.20-5.40); White Blood Cell (WBC) Count 8.2 10x3/uL (4.8-10.8)
[2022-10-09 04:20] LABS: Platelet Count 199 10x3/uL (130-400)
[2022-10-09 04:23] LABS: Hemoglobin A1c 5.2 % (4.0-6.0)
[2022-10-09 04:35] LABS: Anion Gap 12 mmol/L (10-20); BUN (Urea Nitrogen) 18 mg/dL (9.8-20.1); Calc. Creatinine Clearance 94 mL/min (70-130); Calcium 8.9 mg/dL (7.8-10.44); Carbon Dioxide 31 mmol/L (23-31); Cardiac Risk 3.1 (Less than 4.5); Chloride 102 mmol/L (98-107); Cholesterol 111 mg/dl (< 200 Desired); Estimated GFR 71; Glucose 98 mg/dL (83-110); HDL Cholesterol 36 mg/dL (>60 Neg Risk); LDL Cholesterol, Calculated 62 mg/dL; Magnesium 2.2 mg/dL (1.6-2.6); Potassium 4.1 mmol/L (3.5-5.1); Sodium 141 mmol/L (136-145); Triglycerides 63 mg/dL (Less than 150)
[2022-10-09] MEDS: Furosemide 40 MG/4 ML VIAL SLOW IVP SCH (05:16)
[2022-10-09] MEDS: Acetaminophen 325 MG TAB PO PRN ×2 (06:07→21:53)
[2022-10-09] MEDS ORDERED: Spironolactone 25 MG TAB PO SCH ×3 (08:00→09:00)
[2022-10-09] MEDS: Sertraline 100 MG TAB PO SCH (08:54)
[2022-10-09] MEDS: hydrALAZINE 25 MG TAB PO SCH ×3 (08:54→21:53)
[2022-10-09] MEDS: Pramipexole Di-HCl 1 MG TAB PO SCH (08:54)
[2022-10-09] MEDS: Carvedilol 3.125 MG TAB PO SCH (08:54)
[2022-10-09] MEDS: Empagliflozin 10 MG TAB PO SCH (08:55)
[2022-10-09] MEDS: Simethicone Chewable 80 MG TAB PO SCH ×4 (08:55→21:53)
[2022-10-09] MEDS: Aspirin 81 mg Enteric Coated Tablet PO SCH (08:55)
[2022-10-09] MEDS: Furosemide 20 MG/2 ML VIAL SLOW IVP SCH (13:19)
[2022-10-09] MEDS ORDERED: Furosemide 40 MG/4 ML VIAL SLOW IVP SCH (14:00)
[2022-10-09] MEDS: Baclofen 10 MG TAB PO PRN (21:54)
[2022-10-10 05:00] LABS: Anion Gap 10 mmol/L (10-20); BUN (Urea Nitrogen) 21 mg/dL (9.8-20.1); Calc. Creatinine Clearance 88 mL/min (70-130); Calcium 9.2 mg/dL (7.8-10.44); Carbon Dioxide 36 mmol/L (23-31); Chloride 98 mmol/L (98-107); Estimated GFR 66; Glucose 90 mg/dL (83-110); Potassium 4.1 mmol/L (3.5-5.1); Sodium 140 mmol/L (136-145)
[2022-10-10] MEDS: Furosemide 20 MG/2 ML VIAL SLOW IVP SCH ×2 (05:36→14:41)
[2022-10-10] MEDS ORDERED: Spironolactone 25 MG TAB PO SCH (08:00)
[2022-10-10] MEDS: Simethicone Chewable 80 MG TAB PO SCH ×2 (09:00→14:42)
[2022-10-10] MEDS: Pramipexole Di-HCl 1 MG TAB PO SCH (09:00)
[2022-10-10] MEDS: Sertraline 100 MG TAB PO SCH (09:01)
[2022-10-10] MEDS: Aspirin 81 mg Enteric Coated Tablet PO SCH (09:01)
[2022-10-10] MEDS: Empagliflozin 10 MG TAB PO SCH (09:01)
[2022-10-10] MEDS: hydrALAZINE 25 MG TAB PO SCH ×2 (09:01→14:42)
[2022-10-10 11:33] VITALS: BP 154/67; TEMP 96
[2022-10-11] MEDS ORDERED: Losartan 25 MG TAB PO SCH (09:00)
[2022-10-11] MEDS ORDERED: Furosemide 40 MG TAB PO SCH (09:00)
== END 2022-10-10 17:37 | disposition home or self-care (01) | DRG 291 ==
LOC: ERS 07:47 → SUATTDRO 07:47 → 2NO 11:39
PROVIDERS: ADMIT Internal Medicine; ATTEND Internal Medicine
DX: I11.0 Hypertensive heart disease with heart failure (principal); I50.33 Acute on chronic diastolic (congestive) heart failure; J96.11 Chronic respiratory failure with hypoxia; Z68.41 Body mass index [BMI] 40.0-44.9, adult; I25.10 Atherosclerotic heart disease of native coronary artery without angina pectoris; J44.9 Chronic obstructive pulmonary disease, unspecified; F39 Unspecified mood [affective] disorder; G25.81 Restless legs syndrome; I27.20 Pulmonary hypertension, unspecified; E66.01 Morbid (severe) obesity due to excess calories; E87.6 Hypokalemia; F32.A Depression, unspecified; Z88.1 Allergy status to other antibiotic agents; Z88.0 Allergy status to penicillin; Z88.8 Allergy status to other drugs, medicaments and biological substances; Z79.82 Long term (current) use of aspirin; Z79.899 Other long term (current) drug therapy
CPT/HCPCS: 36415; 51701; 71045; 80048; 80053; 80061; 81003; 81015; 82728; 83036; 83690; 83735; 83880; 84484; 85025; 86850; 86900; 86901; 93005; 93306; 93798; 94760; 96374; J1650; J1940

== ENCOUNTER 2023-07-10 05:50 | Observation (INO) | payer BC, MEDICARE ==
[2023-07-10 06:21] LABS: #Eosinphils 0.2 thou/uL (0.0-0.7); #Monocytes 0.5 thou/uL (0.11-0.59); #Neutrophils 5.7 thou/uL (1.40-6.50); %Basophils 0.5 % (0.0-1.0); %Eosinophils 2.3 % (0.0-10.0); %Lymphocytes 20.8 % (21.0-51.0); %Monocytes 6.6 % (0.0-10.0); %Neutrophils 69.6 % (42.0-75.0); Hematocrit 38.4 % (36.0-47.0); Hemoglobin 11.8 g/dL (12.0-16.0); Mean Corpuscular HGB CONC 30.7 g/dL (32.0-36.0); Mean Corpuscular Hemoglobin 26.4 pg (27.0-31.0); Mean Corpuscular Volume 85.9 fl (78.0-98.0); Mean Platelet Volume 11.8 fL (7.4-10.4); Platelet Count 168 10x3/uL (130-400); RBC Distribution Width 16.3 % (11.5-14.5); Red Blood Cell (RBC) Count 4.47 mill/uL (4.20-5.40); White Blood Cell (WBC) Count 8.2 10x3/uL (4.8-10.8)
[2023-07-10 06:46] LABS: ALT (SGPT) 8 U/L (8-55); AST (SGOT) 13 U/L (5-34); Albumin 3.8 g/dL (3.4-4.8); Alkaline Phosphatase 116 U/L (40-110); Anion Gap 12 mmol/L (10-20); BUN (Urea Nitrogen) 23 mg/dL (9.8-20.1); Bilirubin, Total 0.6 mg/dL (0.2-1.2); Calc. Creatinine Clearance 0 mL/min (70-130); Calcium 9.2 mg/dL (7.8-10.44); Carbon Dioxide 30 mmol/L (23-31); Chloride 106 mmol/L (98-107); Estimated GFR 76; Globulin 3.6 g/dL (2.4-3.5); Glucose 98 mg/dL (83-110); Potassium 3.9 mmol/L (3.5-5.1); Protein, Total 7.4 g/dL (5.8-8.1); Sodium 144 mmol/L (136-145)
[2023-07-10 06:48] LABS: Troponin I Less than 0.010 ng/mL (< 0.028)
[2023-07-10 08:17] VITALS: BMI 42.2
[2023-07-10] MEDS ORDERED: Acetaminophen 650 MG Suppository PR PRN (08:42)
[2023-07-10] MEDS ORDERED: Non-Formulary Item 1 EACH (Potassium Chloride [Potassium Chloride] 20 MEQ Tablet.Er) PO SCH (09:00)
[2023-07-10] MEDS ORDERED: Furosemide 40 MG TAB ONE ×2 (09:20→15:13)
[2023-07-10] MEDS ORDERED: Acetaminophen 325 MG TAB ONE (09:20)
[2023-07-10] MEDS ORDERED: Enoxaparin 40 MG (0.4 mL) SYRINGE ONE (09:20)
[2023-07-10] MEDS ORDERED: Losartan 25 MG TAB ONE (09:30)
[2023-07-10] MEDS ORDERED: Sertraline 100 MG TAB ONE (09:30)
[2023-07-10 09:56] LABS: Troponin I Less than 0.010 ng/mL (< 0.028)
[2023-07-10] MEDS: Enoxaparin 40 MG (0.4 mL) SYRINGE SC SCH (10:03)
[2023-07-10] MEDS: Acetaminophen 325 MG TAB PO PRN (10:04)
[2023-07-10] MEDS: Losartan 25 MG TAB PO SCH ×2 (10:04→16:40)
[2023-07-10] MEDS: Sertraline 100 MG TAB PO SCH (10:04)
[2023-07-10] MEDS: Spironolactone 25 MG TAB PO SCH (10:04)
[2023-07-10] MEDS: Furosemide 40 MG TAB PO SCH (10:04)
[2023-07-10] MEDS: Empagliflozin 10 MG TAB PO SCH (10:04)
[2023-07-10] MEDS: Potassium Chloride 20 MEQ TAB PO SCH (10:05)
[2023-07-10] MEDS ORDERED: Aspirin Chewable 81 MG TAB ONE (10:06)
[2023-07-10] MEDS ORDERED: Aspirin 81 mg Enteric Coated Tablet ONE (10:06)
[2023-07-10] MEDS: Aspirin 81 mg Enteric Coated Tablet PO SCH (10:07)
[2023-07-10] MEDS ORDERED: Regadenoson 0.4 MG/5 ML SYRINGE ONE (10:41)
[2023-07-10 15:42] LABS: Troponin I Less than 0.010 ng/mL (< 0.028)
[2023-07-10] MEDS: Pramipexole Di-HCl 1 MG TAB PO SCH (21:46)
[2023-07-10] MEDS: Atorvastatin Calcium 40 MG TAB PO SCH (21:46)
[2023-07-11 13:39] VITALS: TEMP 98.4
[2023-07-11 16:36] VITALS: BP 136/62
== END 2023-07-11 16:30 | disposition home or self-care (01) ==
LOC: ERS 05:50 → ERHOLD 07:31 → 2SW 16:06
PROVIDERS: ADMIT Family Medicine; ATTEND Internal Medicine
DX: R07.89 Other chest pain (principal); I11.0 Hypertensive heart disease with heart failure; I50.9 Heart failure, unspecified; K21.9 Gastro-esophageal reflux disease without esophagitis; J44.9 Chronic obstructive pulmonary disease, unspecified; Z88.1 Allergy status to other antibiotic agents; Z88.0 Allergy status to penicillin; Z88.8 Allergy status to other drugs, medicaments and biological substances; Z79.82 Long term (current) use of aspirin; Z79.899 Other long term (current) drug therapy; Z90.49 Acquired absence of other specified parts of digestive tract; Z98.890 Other specified postprocedural states
CPT/HCPCS: 71045; 78452; 80053; 83880; 84484 ×2; 85025; 93005; 93017; 99285; A9502; J2785; 36415; 96372; G0378; J1650